=== PATIENT | female | born 1960 | race Caucasian/White ===

== ENCOUNTER 2022-10-31 15:55 | Inpatient (IN) ==
[2022-10-31] MEDS ORDERED: morphine 2 MG/ML VIAL IV ONE ×2 (16:10→17:17)
--- NOTE | 2022-10-31 16:13 | Emergency Department Note ---
Fall HPI General Chief Complaint: Extremity Injury, Lower Stated Complaint: hip Time Seen by Provider: 10/31/22 16:10 Source: patient and EMS Mode of arrival: EMS Limitations: no limitations History of Present Illness HPI Narrative: Narrative: Patient presents to the ED via EMS with complaints of left hip pain after tripping over a water bottle. Patient rates her pain 9/10. States she cannot move because of the pain will be unbearable. Patient denies head trauma, loss of consciousness, neck pain, bowel bladder incontinence, lower extremity numbness, loss of motor function lower extremity, pain medication. Patient denies any other alleviating or aggravating factors. Related Data Allergies Allergy/AdvReac Type Severity Reaction Status Date / Time No Known Drug Allergies Allergy Verified 10/31/22 15:58 Review of Systems ROS ROS Narrative: Narrative: All systems ED: reviewed and negative except as stated. PFSH Narrative Patient History Narrative: Narrative: Medical/Surgical/Family History All Active Problems (Updated 10/31/22 @ 17:27 by Shin Acuña DO) Closed fracture of left hip (Acute) Social History Smoking Status: Current every day smoker Exam Narrative Narrative: Narrative: General Limitations: no limitations General appearance: Present grimacing; Absent in distress Head Head: Present atraumatic and normocephalic Eye Eye: Present PERRL and EOMI ENT ENT: Present normal oropharynx and mucous membranes moist Neck Neck: Present normal inspection and full ROM; Absent tenderness Chest Chest: Present normal inspection Respiratory Respiratory: Present normal lung sounds bilaterally; Absent respiratory distress Cardiovascular Cardiovascular: Present regular rate and normal rhythm Adbominal Abdominal: Present soft; Absent tenderness Extremities Extremities: Present normal capillary refill Expanded Lower Extremity Hip/Pelvis: Present tenderness Neurological Neurological: Present alert and oriented X3 Psychiatric Psychiatric: Present normal affect and normal mood Skin Skin: Present warm (WNL) and intact Course Course Course Narrative: Patient was evaluated secondary to a fall with left hip pain. X-rays and CT of the pelvis was obtained with image reviewed myself which showed a left hip fracture. Patient given IV morphine for discomfort as well as IV fluids. Labs were obtained unremarkable. EKG was unremarkable. Case discussed with on-call orthopedic surgeon who plans to for surgical correction and will admit the patient. Plan of care was discussed with patient she expressed verbal understanding agreement of plan Consultations Consultation #1: Case discussed with on-call orthopedic surgeon, Dr. Castro, who will plan to admit the patient for surgical correction. Time: 17:20 Vital Signs Vital signs: Vital Signs Pulse Rate 74 10/31/22 15:56 Respiratory Rate 20 10/31/22 15:56 Blood Pressure 150/77 10/31/22 15:56 Pulse Oximetry (%) 93 10/31/22 15:56 Oxygen Delivery Method Room Air 10/31/22 15:56 Pulse Rate 67 10/31/22 17:03 Respiratory Rate 20 10/31/22 15:56 Blood Pressure 150/77 10/31/22 15:56 Pulse Oximetry (%) 93 10/31/22 15:56 Oxygen Delivery Method Room Air 10/31/22 15:56 MDM MDM Narrative Medical decision making narrative: Narrative: Differential Diagnosis Differential Diagnosis: Fall, hip fracture Medical Records Medical records reviewed: Yes I reviewed the patient's medical records. Lab Data Labs: Lab Results 10/31/22 Range/Units 17:05 POC Hct 41.0 (36-48) POC Sodium 136 (133-145) POC Potassium 5.2 H (3.3-5.1) POC Chloride 104 (96-108) POC Total CO2 26.0 (22-30) POC BUN 25 H (6-20) POC Creatinine 0.6 (0.6-1.2) POC Glucose 406 H (70-105) POC WB Ioniz Calcium 1.08 L (1.16-1.32) Radiology Data Radiology results reviewed: Yes I reviewed the patient's radiology results. Radiology results narrative: CT of the pelvis obtained with image reviewed myself, agree with radiologist interpretation Left hip x-ray obtained with image reviewed myself, I agree with radiologist interpretation EKG Data EKG #1: EKG attestation: Yes I reviewed and interpreted this EKG. EKG shows normal: sinus rhythm Rate: normal Rhythm: NSR [place]/QRS: normal ST segment elevation in: None ST segment depression in: None QTc: normal QRS morphology: Present normal Interpretation: no acute changes Core Measures AMI Core Measures Followed: Yes Discharge Plan Patient/Caregiver Discharge Instructions Pt seen by [employer]/PA only: No Clinical Impression: Closed fracture of left hip Patient Disposition: Xfer As Outpt/Obs ([facility]) Condition: Fair Follow up with: Unknown,Unknown [Primary Care Provider] -
[2022-10-31 17:10] LABS: POC Calcium, Ionized 1.08 (1.16-1.32); POC Creatinine 0.6 (0.6-1.2); POC Potassium 5.2 (3.3-5.1)
--- NOTE | 2022-10-31 17:15 | XRay Report ---
HISTORY: Preop for hip fracture repair FINDINGS: There are overlying artifacts including artifact from subcutaneous fat in the chest wall. The lungs are clear without evidence of pneumonia or congestive heart failure. The heart size is normal. IMPRESSION: Limited exam showing no acute abnormality Interpreted and Authenticated by: Jamal Garcia 10/31/22
--- NOTE | 2022-10-31 17:19 | XRay Report ---
HISTORY: Fell with left hip fracture FINDINGS: There is an acute comminuted fracture through the proximal left femur. There is a vertical component extending into the greater trochanter and an oblique component extending to the lateral subtrochanteric region and through the lesser trochanter. There is moderate varus angulation. The hip joint is normal without evidence of underlying arthritis. 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 The right hip is normal. IMPRESSION: Acute fracture of the proximal left femur with moderate angulation deformity Interpreted and Authenticated by: Jamal Garcia 10/31/22
[2022-10-31] MEDS ORDERED: ONDANSETRON 4 MG/2 ML VIAL IV PRN (17:23)
[2022-10-31] MEDS ORDERED: morphine 2 MG/ML VIAL IV PRN (17:23)
--- NOTE | 2022-10-31 17:31 | Cat Scan Report ---
History: Fell with left hip injury FINDINGS: Patient was scanned lying on the stomach. Axial images were acquired without contrast at 2.5 mm intervals. Sagittal and coronal reformats were created. The radiation exposure was limited using dose reduction technology. FINDINGS: There is an acute comminuted intertrochanteric fracture of the proximal left femur. The lesser trochanter is displaced. The fracture extends into the lateral subcutaneous trochanteric region. There is moderate angulation both ventrally and there is a varus deformity. The femoral head and hip joint are normal. The superior aspect of the fracture line extends to the boundary between the femoral neck and the medial side of the greater trochanter. No other pelvic or hip fracture present. 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 No intrapelvic hematoma is present. There is edema in the soft tissues around the fracture. Bowel pattern is normal. There is no free fluid in the pelvis. Uterus ovaries and bladder are normal. IMPRESSION: Acute fracture the proximal left femur with moderate angulation deformity Dr. Acuña was called with the report Interpreted and Authenticated by: Jamal Garcia 10/31/22
[2022-10-31 18:01] LABS: Basophils # (Auto) 0.06 K/mcL (0.00-0.30); Basophils % (Auto) 0.5 % (0.0-2.0); Eosinophils # (Auto) 0.16 K/mcL (0.00-0.70); Eosinophils % (Auto) 1.5 % (0.0-7.0); Hematocrit 40.3 % (34.1-44.9); Hemoglobin 13.4 g/dL (11.2-15.7); Lymphocytes # (Auto) 1.89 K/mcL (1.50-4.80); Lymphocytes % (Auto) 17.3 % (15.5-49.0); Mean Cell Volume 86.7 fL (80.0-100.0); Mean Corpuscular HGB Conc 33.3 g/dL (31.0-36.0); Mean Platelet Volume 10.8 fL (8.8-12.5); Monocytes % (Auto) 4.6 % (1.0-12.0); Neutrophils % (Auto) 75.6 % (38.0-78.0); Platelet Count 266 K/mcL (140-440); RBC 4.65 M/mcL (3.59-5.38); Red Cell Distribution Width 13.2 % (11.5-14.5); WBC 10.9 K/mcL (4.5-11.0)
[2022-10-31 18:15] LABS: INR 0.9 (0.9-1.1); Prothrombin Time 12.7 sec (11.9-14.5)
[2022-10-31 18:35] LABS: ALT/SGPT 13 U/L (<40); AST/SGOT 12 U/L (<32); Albumin 3.9 gm/dL (3.2-5.2); Albumin/Globulin Ratio 1.3 (1.0-2.3); Alkaline Phosphatase 109 U/L (39-117); Bilirubin,Total 0.3 mg/dL (0.1-1.0); Blood Urea Nitrogen 18 mg/dL (6-20); Carbon Dioxide 23 mmol/L (22-30); Chloride 104 mmol/L (96-108); Globulin 2.9 gm/dL (2.2-3.7); Glomerular Filtration Rate 94; Glucose 409 mg/dL (70-105)
[2022-10-31] MEDS ORDERED: INSULIN REGULAR, HUMAN 1 UNIT/0.01 ML UNIT IV ONE (18:40)
[2022-10-31] MEDS ORDERED: 0.9 % SODIUM CHLORIDE 1,000 ML IV ONE (18:40)
[2022-10-31] MEDS ORDERED: MAGNESIUM HYDROXIDE 30 ML ORAL.SUSP PO PRN (20:26)
[2022-10-31] MEDS ORDERED: DEXTROSE 31 GM ORAL.SUSP PO PRN ×2 (20:26→20:52)
[2022-10-31] MEDS ORDERED: METHOCARBAMOL 1,000 MG/10 ML VIAL IV PRN (20:26)
[2022-10-31] MEDS ORDERED: BISACODYL 10 MG SUPP.RECT PR PRN (20:26)
[2022-10-31] MEDS ORDERED: POLYETHYLENE GLYCOL 3350 17 GM PACKET PO PRN (20:26)
[2022-10-31] MEDS ORDERED: DEXTROSE 50% 50 ML VIAL IV PRN ×2 (20:26→20:52)
[2022-10-31] MEDS ORDERED: FLEETS ADULT ENEMA PR PRN (20:26)
[2022-10-31] MEDS ORDERED: hydrALAZINE 20 MG/ML VIAL IV PRN (20:52)
[2022-10-31] MEDS ORDERED: INSULIN LISPRO 1 UNIT/0.01 ML UNIT SQ SCH (21:00)
[2022-10-31] MEDS ORDERED: INSULIN GLARGINE, HUMAN 1 UNIT/0.01 ML SQ SCH (21:32)
--- NOTE | 2022-10-31 21:40 | Internal Medicine Consult Note ---
HPI Date of Consult Consult Date: 10/31/22 Primary Care Provider: Unknown Unknown Consult Narrative History of present illness: Presents the ED after tripping over a pack of water at daughters house and falling on the left hip with immediate pain. Unable to bear weight due to pain. Patient visiting from out of town. Patient seen evaluated in ED found to have left hip fracture on imaging. Dr. Castro contacted. Patient will undergo orthopedic repair tomorrow. Patient also history of diabetes and did have a blood glucose of 409 when she arrived. She also has a history of hypertension did have elevated blood pressures in the ED with systolics anywhere between 150 and 170s. Although pain a factor. No chest pain shortness of breath. No nausea vomiting. Review of Systems: Pertinent positives as above. denies headache/fever/chills/nausea/vomiting/chest or abdominal pain/cough/dyspnea/diarrhea. Remaining 10 point review of system reviewed negative PHYSICAL EXAM General: Alert, Awake, No acute Distress, obese Eyes/N/T: EOMI, no scleral icterus, PERRL, MM Head/Neck: neck supple, full ROM, normocephalic atraumatic CV: RRR, No murmurs, normal s1/s2 Pulm: Clear b/l, no wheezing/rhonchi/rales, no respiratory distress Abd: soft, nontender, +BS x4 Ext: no clubbing/cyanosis/edema, nontender Neuro: Alert, CN 2-12 grossly intact, no focal deficits, moves all extremities, , sensations intact b/l upper/lower Psychiatric: Skin: warm/dry, normal color cc:: CC: Henok Castro MD [facility] All Active Problems (Updated 10/31/22 @ 20:40 by Henok Castro MD) Diabetes mellitus (Acute) Hypertension (Acute) Diabetes 1.5, managed as type 1 (Acute) Closed fracture of left hip (Acute) Social History smoking status: Current every day smoker MEDS/ALLERGIES Home Medications and Allergies Home Medications Medication Instructions Recorded Confirmed Type atorvastatin 10 mg tablet 10 mg PO QDAY 10/31/22 10/31/22 History insulin glargine 100 unit/mL 18 unit subcut QPM 10/31/22 10/31/22 History subcutaneous cartridge liraglutide 0.6 mg/0.1 mL (18 mg/3 mg subcut 10/31/22 History mL) subcutaneous pen injector ([email or web address]) lisinopril 40 mg tablet 40 mg PO QDAY 10/31/22 10/31/22 History metformin 1,000 mg tablet 1,000 mg PO BID 10/31/22 10/31/22 History propranolol 10/31/22 History sertraline 150 mg capsule 150 mg PO QDAY 10/31/22 10/31/22 History trazodone 50 mg tablet 20 mg PO QPM 10/31/22 10/31/22 History Allergies Allergy/AdvReac Type Severity Reaction Status Date / Time No Known Drug Allergies Allergy Verified 10/31/22 15:58 EXAM Constitutional Vitals: Pulse Resp BP Pulse Ox O2 Del Method 94 H 20 160/82 93 Room Air 10/31/22 21:15 10/31/22 15:56 10/31/22 21:15 10/31/22 21:15 10/31/22 19:16 DATA Data Completed and Pending Labs: Labs from last 24 hours 10/31/22 10/31/22 10/31/22 17:30 17:30 17:30 WBC RBC Hgb Hct POC Hct MCV MCH MCHC RDW Plt Count MPV Immature Gran % (Auto) Neut % (Auto) Lymph % (Auto) Harding % (Auto) Eos % (Auto) Baso % (Auto) Lymph # (Auto) Hard[place] # (Auto) Eos # (Auto) Baso # (Auto) Immature Gran # Absolute Neutrophils PT 12.7 INR 0.9 POC Sodium Sodium 137 POC Potassium Potassium 4.6 POC Chloride Chloride 104 Carbon Dioxide 23 POC Total CO2 Anion Gap 10.0 POC BUN BUN 18 Creatinine 0.7 POC Creatinine GFR Calculation 94 Glucose 409 H POC Glucose Hemoglobin A1c Pending Estim Average Glucose Pending Calcium 9.0 POC WB Ioniz Calcium Total Bilirubin 0.3 AST 12 ALT 13 Alkaline Phosphatase 109 Total Protein 6.8 Albumin 3.9 Globulin 2.9 Albumin/Globulin Ratio 1.3 10/31/22 10/31/22 17:30 17:05 WBC 10.9 RBC 4.65 Hgb 13.4 Hct 40.3 POC Hct 41.0 MCV 86.7 MCH 28.8 MCHC 33.3 RDW 13.2 Plt Count 266 MPV 10.8 Immature Gran % (Auto) 0.5 Neut % (Auto) 75.6 Lymph % (Auto) 17.3 Harding % (Auto) 4.6 Eos % (Auto) 1.5 Baso % (Auto) 0.5 Lymph # (Auto) 1.89 Harding # (Auto) 0.50 Eos # (Auto) 0.16 Baso # (Auto) 0.06 Immature Gran # 0.06 H Absolute Neutrophils 8.26 H PT INR POC Sodium 136 Sodium POC Potassium 5.2 H Potassium POC Chloride 104 Chloride Carbon Dioxide POC Total CO2 26.0 Anion Gap POC BUN 25 H BUN Creatinine POC Creatinine 0.6 GFR Calculation Glucose POC Glucose 406 H Hemoglobin A1c Estim Average Glucose Calcium POC WB Ioniz Calcium 1.08 L Total Bilirubin AST ALT Alkaline Phosphatase Total Protein Albumin Globulin Albumin/Globulin Ratio A/P Narrative A/P Narrative: A: *Left hip fracture *DM w/Hyperglycemia: -409 on admit -A1c *HTN/HLD: *Depression: on home SSRI *Obese: bmi 35 P: -Hip per orthopedic surgeon -reduce dosed home basal insulin as will be npo in morning -SSI -cont home ACEI, and IV prn -cont home psych meds, statin -pt/ot -CM for placement needs -ppx: scd and post op per ortho Time Spent With Patient Time: Total time spent is greater than 50% in coordination of care (as documented) at patient's floor/unit and/or counseling patient:
[2022-10-31] MEDS ORDERED: ACETAMINOPHEN 650 MG/65 ML BAG IV PRN (22:00)
[2022-10-31 22:11] LABS: Hemoglobin A1C 10.3 % Hgb (4.0-6.0)
[2022-10-31] MEDS: morphine 2 MG/ML VIAL IV PRN (22:23)
[2022-10-31] MEDS: SENNOSIDES 1 TABLET PO SCH (22:24)
[2022-10-31] MEDS: DOCUSATE SODIUM 100 MG CAPSULE PO SCH (22:24)
[2022-10-31] MEDS: traZODone HCL 50 MG TABLET PO SCH (22:24)
[2022-10-31] MEDS: 0.9 % SODIUM CHLORIDE 10 ML SYRINGE IV SCH (22:30)
[2022-10-31] MEDS: INSULIN LISPRO 1 UNIT/0.01 ML UNIT SQ SCH (22:36)
[2022-10-31] MEDS: 0.9 % SODIUM CHLORIDE 1,000 ML IV SCH (22:50)
[2022-10-31] MEDS ORDERED: DEXTROSE 5%-1/2NS 1,000 ML IV SCH (23:59)
--- NOTE | 2022-11-01 | Consultation ---
DATE OF CONSULTATION: 10/31/2022 REASON FOR CONSULTATION: Left hip fracture. DATE OF CONSULTATION: 10/31/2022. CONSULTING PROVIDER: ER provider at [facility], Dr. Shin Acuña. HISTORY OF PRESENT ILLNESS: The patient is a 61-year-old female who is visiting from the [place] when she tripped over some case of water and fell onto her left side. Inability to ambulate and brought to the Emergency Department for evaluation and treatment. No other injuries on presentation. Only complains of left hip pain. No radiating pain down to the extremity. PAST MEDICAL HISTORY: Significant for diabetes, hypertension, thyroid disorder. PAST SURGICAL HISTORY: 1. She has had right ankle surgery x2 with the one being hardware removal. 2. Thyroid surgery x2 for cyst excision. 3. Tubal ligation. ALLERGIES: NO KNOWN DRUG ALLERGIES. MEDICATIONS: She takes insulin; however, not on a regular basis, beta marion, but does not know the dosing, lisinopril, sertraline. SOCIAL HISTORY: She does smoke cigarettes on a daily basis, probably half a pack per day, she resides in the [place] with her spouse, but has family here visiting. REVIEW OF SYSTEMS: Other than mentioned above, negative. PHYSICAL EXAMINATION: GENERAL: The patient is alert and oriented, appropriate, not in acute distress. VITAL SIGNS: Heart rate 80s to 90s, blood pressure 160-170 systolic, saturating 95% on room air. EXTREMITIES: Examination of the left lower extremity reveals leg is straight, a bit externally rotated and shortened; however, skin is intact. No ecchymosis or bruising noted. No crepitation about the knee itself. The foot is warm and well perfused. IMAGING: Plain radiographs demonstrating a reverse oblique intertrochanteric femur fracture. LABORATORY DATA: White count, H and H 13.4 and 40.3, platelet 266. Chemistry, she has a creatinine of 0.7, glucose is 409. ASSESSMENT AND PLAN: This is a 61-year-old female who has left peritrochanteric femur fracture. I discussed the diagnosis with her as well as treatment options. Recommendation for operative treatment is stabilized fracture and allow for improvement with decreased pain and mosque of anatomic alignment. I discussed risks of surgery as well as alternatives. With discussion understands she does want to proceed. She has a high risk for infection as she is a diabetic and does smoke. She is also obese. All these factor into the surgerical postoperative complications, which she understands. However, given her current situation, unable to modify many of these. She understands. She elected to proceed in this fashion. We will admit and we will do this in the morning. Otherwise, she is nonweightbearing, n.p.o. after midnight. consult Hospitalist for glucose >400, HTN DLW:rusty Job ID: [id number] Doc ID: [id number] Henok Castro MD [facility]
[2022-11-01 00:17] LABS: Appearance,Urine CLEAR (Clear); Bilirubin,Urine Negative (Negative); Color,Urine YELLOW; Culture Indicated,Urine No; Glucose,Urine (UA) >=500 mg/dL (Negative); Ketones,Urine 5 mg/dL (Negative); Leukocyte Esterase,Urine Negative /uL (Negative); Mucus,Urine FEW /hpf; Nitrate,Urine Negative (Negative); Protein,Urine Negative (Negative); Specific Gravity,Urine 1.029 (1.000-1.035); Urine Blood Negative (Negative); Urine RBC 1 /hpf (0-3); Urine Squamous Epithelial Cell < 1 /hpf (0-4); Urine WBC 1 /hpf (0-4); Urobilinogen,Urine Negative
[2022-11-01] MEDS: morphine 2 MG/ML VIAL IV PRN (02:32)
[2022-11-01] MEDS: INSULIN LISPRO 1 UNIT/0.01 ML UNIT SQ SCH ×8 (02:34→22:02)
[2022-11-01] MEDS: 0.9 % SODIUM CHLORIDE 10 ML SYRINGE IV SCH ×3 (04:38→20:27)
[2022-11-01] MEDS: ceFAZolin 3 GM in DEXTROSE 5% IN WATER 50 ML IV SCH ×2 (06:14→07:15)
[2022-11-01] MEDS ORDERED: SCOPOLAMINE 1 PATCH PATCH TOPICAL PRN (07:00)
[2022-11-01] MEDS ORDERED: ceFAZolin 3 GM in DEXTROSE 5% IN WATER 50 ML IV SCH (07:30)
[2022-11-01] MEDS: 0.9 % SODIUM CHLORIDE 1,000 ML IV SCH ×2 (07:30→17:29)
[2022-11-01] MEDS ORDERED: KETAMINE 50 MG/ML Syringe (ANEST) IV ONE (07:32)
[2022-11-01] MEDS ORDERED: fentaNYL 250 MCG/5 ML VIAL IV ONE (07:32)
[2022-11-01] MEDS ORDERED: PHENYLephrine 1 MG/10 ML SYRINGE (ANEST) ONE (07:32)
[2022-11-01] MEDS ORDERED: VASOPRESSIN 20 UNIT/ML VIAL ONE (07:32)
[2022-11-01] MEDS ORDERED: PROPOFOL 200 MG/20 ML VIAL IV ONE (07:32)
[2022-11-01] MEDS ORDERED: DEXAMETHASONE 10 MG/ML VIAL ONE (07:32)
[2022-11-01] MEDS ORDERED: LIDOCAINE HCL/PF 100 MG/5 ML SYRINGE IV ONE (07:32)
[2022-11-01] MEDS ORDERED: TRANEXAMIC ACID 1,000 MG/10 ML VIAL ONE (07:32)
[2022-11-01] MEDS ORDERED: SUCCINYLCHOLINE 20 MG/ML ML IV ONE (07:32)
[2022-11-01] MEDS ORDERED: MAGNESIUM SULFATE 2 GM/50 ML BAG IV ONE (07:32)
[2022-11-01] MEDS ORDERED: ONDANSETRON 4 MG/2 ML VIAL ONE (07:32)
[2022-11-01] MEDS ORDERED: MIDAZOLAM 2 MG/2 ML VIAL ONE (07:32)
[2022-11-01] MEDS ORDERED: GLYCOPYRROLATE 0.2 MG/ML VIAL IV ONE (07:32)
[2022-11-01] MEDS ORDERED: ROCURONIUM 10 MG/ML ML IV ONE (07:32)
--- NOTE | 2022-11-01 08:27 | Internal Med Progress Note ---
SUBJECTIVE Subjective Patient information: Note initiated : 11/01/22 at 8:25 am Service Date, if different from initiated Date: [] Patient: Zoraida Rodriguez 62 y/o F admitted on 10/31/22 for hip-Left Hip Fracture. Chief Complaint: [] Interval history: History of present illness: Presents the ED after tripping over a pack of water at daughters house and falling on the left hip with immediate pain. Unable to bear weight due to pain. Patient visiting from out of town. Patient seen evaluated in ED found to have left hip fracture on imaging. Dr. Castro contacted. Patient will undergo orthopedic repair tomorrow. Patient also history of diabetes and did have a blood glucose of 409 when she arrived. She also has a history of hypertension did have elevated blood pressures in the ED with systolics anywhere between 150 and 170s. Although pain a factor. No chest pain shortness of breath. No nausea vomiting. 11/01 Patient status post ORIF of the hip. Pain relatively controlled. No new complaints. PT OT. Monitor blood glucose closely. Review of Systems: Pertinent positives as above. denies headache/fever/chills/nausea/vomiting/chest or abdominal pain/cough/dyspnea/diarrhea. PHYSICAL EXAM General: Alert, Awake, No acute Distress, obese Eyes/N/T: EOMI, no scleral icterus, Head/Neck: neck supple, full ROM, CV: RRR, No murmurs, Pulm: Clear b/l, no wheezing/rhonchi/rales, no respiratory distress Abd: soft, nontender, +BS x4 Ext: no clubbing/cyanosis/edema, nontender Neuro: Alert, no focal deficits, moves all extremities, , sensations intact b/l upper/lower Psychiatric: Skin: warm/dry, normal color Constitutional Vitals: Vital Signs Temp Pulse Resp BP Pulse Ox O2 Del Method O2 Flow Rate 97.9 F 77 18 141/67 97 Room Air 0 11/01/22 07:00 11/01/22 07:00 11/01/22 07:00 11/01/22 07:00 11/01/22 07:00 11/01/22 07:00 11/01/22 07:00 Period Temp Pulse Resp BP Sys/Mcknight Pulse Ox O2 Del Method O2 Flow Rate Last 24 Hr 97.3 F-98.3 F 67-96 16-20 136-178/67-85 92-100 Room Air-Room Air 0-0 Intake and Output 10/31/22 11/01/22 11/01/22 19:59 03:59 11:59 Intake Total 480 1000 Output Total 750 Balance 480 250 Weight 106.594 kg 123.831 kg Intake & Output: Intake & Output 10/31/22 11/01/22 11/01/22 19:59 03:59 11:59 Intake Total 480 1000 Output Total 750 Balance 480 250 Weight 106.594 kg 123.831 kg Intake: IV 1000 Sodium Chloride 0.9% 1,000 ml @ 1000 Wide Open IV BOLUS ONE Rx#: [id number] Oral 480 Output: Urine Catheter Amount 750 Other: Meal Dinner Percent of Meal Consumed 100% Feeding Ability Independent Urine Appearance Clear Clear Uretheral (Diaz) Clear Clear Clear Urine Color Pale Bright Yellow Uretheral (Diaz) Yellow Yellow Bright Yellow Urine Odor Normal Normal Uretheral (Diaz) Normal Normal OBJ DATA Labs 10/31/22 17:30 10/31/22 17:30 Labs: Abnormal Lab Results 10/31/22 10/31/22 10/31/22 23:33 17:30 17:30 Immature Gran # Absolute Neutrophils POC Potassium POC BUN Glucose 409 H POC Glucose Hemoglobin A1c 10.3 H POC WB Ioniz Calcium Urine Glucose (UA) >=500 A Urine Ketones 5 A Urine Mucus Few A 10/31/22 10/31/22 17:30 17:05 Immature Gran # 0.06 H Absolute Neutrophils 8.26 H POC Potassium 5.2 H POC BUN 25 H Glucose POC Glucose 406 H Hemoglobin A1c POC WB Ioniz Calcium 1.08 L Urine Glucose (UA) Urine Ketones Urine Mucus Meds: Medications Atorvastatin Calcium (Atorvastatin 10 Mg Tablet) 10 mg PO QDAY ED Bisacodyl (Bisacodyl 10 Mg Supp.Rect) 10 mg CA Q2-3DAYS PRN PRN Reason: Constipation Dextrose (Dextrose 50% 50 Ml Vial) 0 ml IV UD PRN PRN Reason: Per Sliding Scale Dextrose (Dextrose 50% 50 Ml Vial) 0 ml IV UD PRN PRN Reason: Per Sliding Scale Diagnostic Test (Pha) (Accu-Chek 1 Each Strip) 1 each FS ACHS ED Last Admin: 11/01/22 06:40 Dose: 1 each Docusate Sodium (Docusate Sodium 100 Mg Capsule) 100 mg PO BID ED Last Admin: 10/31/22 22:24 Dose: 100 mg Glucose (Dextrose 31 Gm Oral.Susp) 15 gm PO PRN PRN PRN Reason: Hypoglycemia Hydralazine HCl (Hydralazine 20 Mg/Ml Vial) 0 mg IV Q2HP PRN PRN Reason: Hypertension Last Admin: 10/31/22 22:55 Dose: 10 mg Acetaminophen (Ofirmev) 650 mg in 65 mls @ 130 mls/hr IV Q8HP PRN; Protocol PRN Reason: PAIN LEVEL 3-6 Sodium Chloride (Sodium Chloride 0.9%) 1,000 mls @ 100 mls/hr IV .Q10H ED Last Admin: 11/01/22 07:30 Dose: Not Given Cefazolin Sodium 3 gm/ (Dextrose) 50 mls @ 100 mls/hr IV PREOP ED; Protocol Stop: 11/01/22 09:00 Last Admin: 11/01/22 07:59 Dose: Not Given Insulin Glargine (Insulin Glargine, Human 1 Unit/0.01 Ml) 18 unit SQ QPM ED Insulin Human Lispro (Insulin Lispro 1 Unit/0.01 Ml Unit) 0 unit SQ ACHS [facility]; Protocol Last Admin: 11/01/22 06:55 Dose: 6 units Lisinopril (Lisinopril 20 Mg Tablet) 40 mg PO QDAY ED Magnesium Hydroxide (Magnesium Hydroxide 30 Ml Oral.Susp) 30 ml PO BIDP PRN PRN Reason: Constipation Methocarbamol (Methocarbamol 1,000 Mg/10 Ml Vial) 500 mg IV Q6HP PRN PRN Reason: Muscle Spasm Last Admin: 10/31/22 22:22 Dose: 500 mg Morphine Sulfate (Morphine 2 Mg/Ml Vial) 2 - 4 mg IV Q4HP PRN; Protocol PRN Reason: Per Pain Protocol Last Admin: 11/01/22 02:32 Dose: 2 mg Ondansetron HCl (Ondansetron 4 Mg/2 Ml Vial) 4 mg IV Q4HP PRN PRN Reason: Nausea And Vomiting Polyethylene Glycol (Polyethylene Glycol 3350 17 Gm Packet) 17 gm PO DAILYP PRN PRN Reason: Constipation Scopolamine (Scopolamine 1 Patch Patch) 1 patch TOPICAL PREOP PRN PRN Reason: Nausea And Vomiting Senna (Sennosides 1 Tablet) 2 tab PO HS [facility] Last Admin: 10/31/22 22:24 Dose: 2 tab Sertraline HCl (Sertraline 100 Mg Tablet) 150 mg PO QDAY [facility] Sodium Biphosphate/Sodium Phosphate (Fleets Adult Enema) 1 dose CA Q3-4DAYS PRN PRN Reason: Constipation Sodium Chloride (0.9 % Sodium Chloride 10 Ml Syringe) 10 ml IV Q8 [facility] Last Admin: 11/01/22 04:38 Dose: 10 ml Trazodone HCl (Trazodone Hcl 50 Mg Tablet) 25 mg PO QPM [facility] Last Admin: 10/31/22 22:24 Dose: 25 mg A/P Narrative A/P Narrative: A: *Left hip fracture: s/p ORIF (11/01) *DM w/Hyperglycemia: sounds like she stopped taking her meds recently b/c she has been depressed from loosing a son in 2020 -409 on admit -A1c 10 *HTN/HLD: *Depression: on home SSRI *Obese: bmi 35 P: -Hip per orthopedic surgeon -start back home basal insulin with ssi -cont home ACEI, and IV prn -cont home psych meds, statin -pt/ot -IS -CM for placement needs -ppx: scd and post op per ortho Time Spent With Patient Time: Total time spent is greater than 50% in coordination of care (as documented) at patient's floor/unit and/or counseling patient: Subsequent: Total time with patient: 35 - 49 minutes QUALITY VTE Deep Vein Thrombosis/Pulmonary Embolism Present on Admission: No
[2022-11-01] MEDS ORDERED: VANCOMYCIN 1 GM VIAL TOPICAL SCH (09:15)
--- NOTE | 2022-11-01 09:35 | Brief Operative Note ---
Brief Operative Note Date of procedure: 11/01/22 Pre-op diagnosis: left peritrochanteric femur fracture Post-op diagnosis: same Procedure: operative fixation of left peritrochanteric femur fracture Grafts/Implants: Yes Anesthesia: GETA Findings: comminuted fracture Complications: none Surgeon: Henok Castro Acid Concentrator: Ryan Kwon Estimated blood loss (cc): 80 Specimens Removed/Pathology: none sent Condition: stable Disposition: PACU
[2022-11-01] MEDS ORDERED: PROMETHAZINE 25 MG/ML VIAL IV PRN (09:41)
[2022-11-01] MEDS ORDERED: METHOCARBAMOL 1,000 MG/10 ML VIAL IV PRN (09:41)
[2022-11-01] MEDS ORDERED: ONDANSETRON 4 MG/2 ML VIAL IV PRN (09:41)
[2022-11-01] MEDS ORDERED: IPRATROPIUM/ALBUTEROL 3 ML AMPUL.NEB NEB PRN (09:41)
[2022-11-01] MEDS ORDERED: MEPERIDINE 25 MG/ML VIAL IV PRN (09:41)
[2022-11-01] MEDS ORDERED: BENZOCAINE/MENTHOL 1 LOZENGE PO PRN (09:43)
[2022-11-01] MEDS ORDERED: TRANEXAMIC ACID 1,000 MG/10 ML VIAL IV ONE (09:43)
[2022-11-01] MEDS ORDERED: HYDROmorphone 0.5 MG/0.5 ML SYRINGE IV PRN (09:49)
--- NOTE | 2022-11-01 09:52 | XRay Report ---
HISTORY: FINDINGS: IMPRESSION: 0.5 minutes of fluoroscopy time was used. Interpreted and Authenticated by: Jamal Garcia 11/01/22
[2022-11-01] MEDS: fentaNYL 100 MCG/2 ML VIAL IV PRN ×2 (10:13→10:30)
[2022-11-01] MEDS: LACTATED RINGERS 1,000 ML IV SCH ×3 (11:00→23:16)
[2022-11-01] MEDS: LISINOPRIL 20 MG TABLET PO SCH (11:19)
[2022-11-01] MEDS: DOCUSATE SODIUM 100 MG CAPSULE PO SCH ×2 (11:20→20:12)
[2022-11-01] MEDS: SERTRALINE 100 MG TABLET PO SCH (11:20)
[2022-11-01] MEDS: oxyCODONE IR 5 MG TABLET PO PRN ×4 (11:21→22:13)
[2022-11-01] MEDS: ATORVASTATIN 10 MG TABLET PO SCH (11:21)
--- NOTE | 2022-11-01 12:26 | XRay Report ---
HISTORY: Postop repair fractured left femur FINDINGS: There is good alignment following open reduction internal fixation of the intertrochanteric and subtrochanteric fracture of the left femur. There is a long femoral nail extending down to the distal metaphysis. There is a pin extending into the femoral neck and two fixation screws in the distal femur. The angulation and deformity seen preoperatively has been largely corrected. IMPRESSION: Good alignment following surgical repair of the fractured proximal left femur Interpreted and Authenticated by: Jamal Garcia 11/01/22
[2022-11-01] MEDS: ACETAMINOPHEN 500 MG TABLET PO SCH ×2 (14:18→21:57)
[2022-11-01] MEDS ORDERED: ceFAZolin 2 GM in DEXTROSE 5% IN WATER 50 ML IV SCH (16:00)
[2022-11-01] MEDS ORDERED: ceFAZolin 2 GM VIAL IV SCH ×2 (16:00)
[2022-11-01] MEDS: ceFAZolin 1 GM VIAL IV SCH (17:09)
[2022-11-01] MEDS: traZODone HCL 50 MG TABLET PO SCH (20:12)
[2022-11-01] MEDS: SENNOSIDES 1 TABLET PO SCH (20:12)
[2022-11-01] MEDS: METHOCARBAMOL 500 MG TABLET PO PRN (20:12)
[2022-11-01] MEDS: INSULIN GLARGINE, HUMAN 1 UNIT/0.01 ML SQ SCH (20:27)
[2022-11-02] MEDS: INSULIN LISPRO 1 UNIT/0.01 ML UNIT SQ SCH ×8 (00:17→20:18)
[2022-11-02] MEDS: ceFAZolin 1 GM VIAL IV SCH (01:10)
[2022-11-02] MEDS: oxyCODONE IR 5 MG TABLET PO PRN ×5 (02:27→18:47)
[2022-11-02] MEDS: 0.9 % SODIUM CHLORIDE 10 ML SYRINGE IV SCH ×3 (04:52→21:56)
[2022-11-02] MEDS: ACETAMINOPHEN 500 MG TABLET PO SCH ×3 (05:29→21:57)
[2022-11-02] MEDS: METHOCARBAMOL 500 MG TABLET PO PRN ×2 (08:09→16:06)
[2022-11-02] MEDS: LISINOPRIL 20 MG TABLET PO SCH (08:09)
[2022-11-02] MEDS: ATORVASTATIN 10 MG TABLET PO SCH (08:09)
[2022-11-02] MEDS: DOCUSATE SODIUM 100 MG CAPSULE PO SCH ×2 (08:09→20:26)
[2022-11-02] MEDS: SERTRALINE 100 MG TABLET PO SCH (08:09)
--- NOTE | 2022-11-02 08:18 | Internal Med Progress Note ---
SUBJECTIVE Subjective Patient information: Note initiated : 11/02/22 at 8:17 am Service Date, if different from initiated Date: [] Patient: Zoraida Rodriguez 62 y/o F admitted on 10/31/22 for hip-Left Hip Fracture. Chief Complaint: [] Interval history: History of present illness: Presents the ED after tripping over a pack of water at daughters house and falling on the left hip with immediate pain. Unable to bear weight due to pain. Patient visiting from out of town. Patient seen evaluated in ED found to have left hip fracture on imaging. Dr. Castro contacted. Patient will undergo orthopedic repair tomorrow. Patient also history of diabetes and did have a blood glucose of 409 when she arrived. She also has a history of hypertension did have elevated blood pressures in the ED with systolics anywhere between 150 and 170s. Although pain a factor. No chest pain shortness of breath. No nausea vomiting. 11/01 Patient status post ORIF of the hip. Pain relatively controlled. No new complaints. PT OT. Monitor blood glucose closely. 11/02 Feeling better today. Pain relatively controlled. No overnight event or new complaints. Blood glucose improved being back on home regimen and blood pressure good. Review of Systems: Pertinent positives as above. denies headache/fever/chills/nausea/vomiting/chest or abdominal pain/cough/dyspn ea/diarrhea. PHYSICAL EXAM General: Alert, Awake, No acute Distress, obese Eyes/N/T: EOMI, no scleral icterus, Head/Neck: neck supple, full ROM, CV: RRR, No murmurs, Pulm: Clear b/l, no wheezing/rhonchi/rales, no respiratory distress Abd: soft, nontender, +BS x4 Ext: no clubbing/cyanosis/edema, nontender Neuro: Alert, no focal deficits, moves all extremities, , sensations intact b/l upper/lower Psychiatric: Skin: warm/dry, normal color Constitutional Vitals: Vital Signs Temp Pulse Resp BP Pulse Ox O2 Del Method O2 Flow Rate 98.3 F 85 18 144/80 96 Room Air 0 11/02/22 00:00 11/02/22 00:00 11/02/22 07:29 11/02/22 00:00 11/02/22 07:29 11/02/22 07:29 11/02/22 07:29 Period Temp Pulse Resp BP Sys/Mcknight Pulse Ox O2 Del Method O2 Flow Rate Last 24 Hr 97.0 F-98.7 F 69-96 12-24 118-167/60-98 92-99 Nasal Cannula- Room Air 0-4 Intake and Output 11/01/22 11/02/22 11/02/22 19:59 03:59 11:59 Intake Total 1800 1800 Output Total 350 1500 Balance 1450 300 Weight 124.284 kg Intake & Output: Intake & Output 11/01/22 11/02/22 11/02/22 19:59 03:59 11:59 Intake Total 1800 1800 Output Total 350 1500 Balance 1450 300 Weight 124.284 kg Intake: IV 1000 1000 Lactated Ringers 1,000 ml @ 75 1000 1000 mls/hr IV .[id number] COUNT [facility]CLUDES [facility] Rx#: [id number] Oral 800 800 Output: Urine Catheter Amount 350 1500 Other: Meal Lunch Percent of Meal Consumed 75% Feeding Ability Assist with Tray Set Up Urine Appearance Clear Clear Uretheral (Diaz) Clear Urine Color Bright Yellow Bright Yellow Uretheral (Diaz) Bright Yellow Urine Odor Normal Normal Uretheral (Diaz) Normal OBJ DATA Labs 10/31/22 17:30 10/31/22 17:30 Labs: Abnormal Lab Results 10/31/22 10/31/22 10/31/22 23:33 17:30 17:30 Immature Gran # Absolute Neutrophils POC Potassium POC BUN Glucose 409 H POC Glucose Hemoglobin A1c 10.3 H POC WB Ioniz Calcium Urine Glucose (UA) >=500 A Urine Ketones 5 A Urine Mucus Few A 10/31/22 10/31/22 17:30 17:05 Immature Gran # 0.06 H Absolute Neutrophils 8.26 H POC Potassium 5.2 H POC BUN 25 H Glucose POC Glucose 406 H Hemoglobin A1c POC WB Ioniz Calcium 1.08 L Urine Glucose (UA) Urine Ketones Urine Mucus Meds: Medications Acetaminophen (Acetaminophen 500 Mg Tablet) 1,000 mg PO Q8 [facility]ES [facility]; Protocol Last Admin: 11/02/22 05:29 Dose: 1,000 mg Atorvastatin Calcium (Atorvastatin 10 Mg Tablet) 10 mg PO QDAY COUNT [facility]CLUDES [facility] Last Admin: 11/02/22 08:09 Dose: 10 mg Bisacodyl (Bisacodyl 10 Mg Supp.Rect) 10 mg NE Q2-3DAYS PRN PRN Reason: Constipation Dextrose (Dextrose 50% 50 Ml Vial) 0 ml IV UD PRN PRN Reason: Per Sliding Scale Dextrose (Dextrose 50% 50 Ml Vial) 0 ml IV UD PRN PRN Reason: Per Sliding Scale Diagnostic Test (Pha) (Accu-Chek 1 Each Strip) 1 each FS ACHS COUNT [facility]CLUDES [facility] Last Admin: 11/02/22 07:49 Dose: 1 each Docusate Sodium (Docusate Sodium 100 Mg Capsule) 100 mg PO BID COUNT [facility]CLUDES [facility] Last Admin: 11/02/22 08:09 Dose: 100 mg Enoxaparin Sodium (Enoxaparin 40 Mg/0.4 Ml Syringe) 40 mg SQ DAILY COUNT [facility]CLUDES [facility] Glucose (Dextrose 31 Gm Oral.Susp) 15 gm PO PRN PRN PRN Reason: Hypoglycemia Hydralazine HCl (Hydralazine 20 Mg/Ml Vial) 0 mg IV Q2HP PRN PRN Reason: Hypertension Last Admin: 10/31/22 22:55 Dose: 10 mg Acetaminophen (Ofirmev) 650 mg in 65 mls @ 130 mls/hr IV Q8HP PRN; Protocol PRN Reason: PAIN LEVEL 3-6 Lactated Ringer's (Lactated Ringers) 1,000 mls @ 75 mls/hr IV .[id number] COUNT INCLUDES [facility] Last Infusion: 11/02/22 06:35 Dose: Infused Insulin Glargine (Insulin Glargine, Human 1 Unit/0.01 Ml) 18 unit SQ QPM COUNT [facility]CLUDES [facility] Last Admin: 11/01/22 20:27 Dose: 18 units Insulin Human Lispro (Insulin Lispro 1 Unit/0.01 Ml Unit) 0 unit SQ Q4 [facility]; Protocol Last Admin: 11/02/22 07:49 Dose: Not Given Lisinopril (Lisinopril 20 Mg Tablet) 40 mg PO QDAY COUNT [facility]CLUDES [facility] Last Admin: 11/02/22 08:09 Dose: 40 mg Magnesium Hydroxide (Magnesium Hydroxide 30 Ml Oral.Susp) 30 ml PO BIDP PRN PRN Reason: Constipation Methocarbamol (Methocarbamol 500 Mg Tablet) 500 mg PO TIDP PRN PRN Reason: Muscle Spasm Last Admin: 11/02/22 08:09 Dose: 500 mg Morphine Sulfate (Morphine 2 Mg/Ml Vial) 2 mg IV Q4HP PRN; Protocol PRN Reason: Per Pain Protocol Ondansetron HCl (Ondansetron 4 Mg/2 Ml Vial) 4 mg IV Q4HP PRN PRN Reason: Nausea And Vomiting Oxycodone HCl (Oxycodone Ir 5 Mg Tablet) 0 mg PO Q4HP PRN; Protocol PRN Reason: Per Pain Protocol Last Admin: 11/02/22 05:27 Dose: 10 mg Polyethylene Glycol (Polyethylene Glycol 3350 17 Gm Packet) 17 gm PO DAILYP PRN PRN Reason: Constipation Senna (Sennosides 1 Tablet) 2 tab PO HS COUNT [facility]CLUDES [facility] Last Admin: 11/01/22 20:12 Dose: 2 tab Sertraline HCl (Sertraline 100 Mg Tablet) 150 mg PO QDAY COUNT [facility]CLUDES [facility] Last Admin: 11/02/22 08:09 Dose: 150 mg Sodium Biphosphate/Sodium Phosphate (Fleets Adult Enema) 1 dose NE Q3-4DAYS PRN PRN Reason: Constipation Sodium Chloride (0.9 % Sodium Chloride 10 Ml Syringe) 10 ml IV Q8 COUNT [facility]CLUDES [facility] Last Admin: 11/02/22 04:52 Dose: 10 ml Throat Lozenges (Benzocaine/Menthol 1 Lozenge) 1 lozenge PO PRN PRN PRN Reason: Sore Throat Trazodone HCl (Trazodone Hcl 50 Mg Tablet) 25 mg PO QPM COUNT [facility]CLUDES [facility] Last Admin: 11/01/22 20:12 Dose: 25 mg A/P Narrative A/P Narrative: A: *Left hip fracture: s/p ORIF (11/01) *DM w/Hyperglycemia: sounds like she stopped taking her meds recently b/c she has been depressed from loosing a son in 2020 -409 on admit -A1c 10 *HTN/HLD: *Depression: on home SSRI *Obese: bmi 35 P: -Hip per orthopedic surgeon -conthome basal insulin with ssi -cont home ACEI, and IV prn -cont home psych meds, statin -pt/ot -IS -CM for placement needs -ppx: post op per ortho lovenox Time Spent With Patient Time: Total time spent is greater than 50% in coordination of care (as documented) at patient's floor/unit and/or counseling patient: Subsequent: Total time with patient: 35 - 49 minutes QUALITY VTE Deep Vein Thrombosis/Pulmonary Embolism Present on Admission: No
--- NOTE | 2022-11-02 09:03 | Orthopedic Progress Note ---
SUBJECTIVE Subjective Patient information: Note initiated : 11/02/22 at 9:00 am Service Date, if different from initiated Date: [] Patient: Zoraida Rodriguez 62 y/o F admitted on 10/31/22 for hip-Left Hip Fracture. Chief Complaint: [] Interval history: POD 2 s/p left hip long cephalomedullary nailing. Patient is doing well and pain is well controlled. She denies any numnbess/tingling, fever, CP, LOREDO, calf pain or any other acute symptoms. Constitutional Vitals: Vital Signs Temp Pulse Resp BP Pulse Ox O2 Del Method O2 Flow Rate 97.9 F 69 18 117/71 97 Room Air 0 11/02/22 08:00 11/02/22 08:00 11/02/22 08:00 11/02/22 08:00 11/02/22 08:00 11/02/22 08:00 11/02/22 08:00 Period Temp Pulse Resp BP Sys/Mcknight Pulse Ox O2 Del Method O2 Flow Rate Last 24 Hr 97.0 F-98.7 F 69-96 12-24 117-167/60-98 92-99 Nasal Cannula- Room Air 0-4 Intake and Output 11/01/22 11/02/22 11/02/22 19:59 03:59 11:59 Intake Total 1800 1800 Output Total 350 1500 Balance 1450 300 Weight 274 lb Intake & Output: Intake & Output 11/01/22 11/02/22 11/02/22 19:59 03:59 11:59 Intake Total 1800 1800 Output Total 350 1500 Balance 1450 300 Weight 274 lb Intake: IV 1000 1000 Lactated Ringers 1,000 ml @ 75 1000 1000 mls/hr IV .[id number] [facility] Rx#: [id number] Oral 800 800 Output: Urine Catheter Amount 350 1500 Other: Meal Lunch Percent of Meal Consumed 75% Feeding Ability Assist with Tray Set Up Urine Appearance Clear Clear Uretheral (Diaz) Clear Urine Color Bright Yellow Bright Yellow Uretheral (Diaz) Bright Yellow Urine Odor Normal Normal Uretheral (Diaz) Normal Additional findings Additional findings: exam of the left hip reveals dressings dry and in place, NVI in entire LLE, no calf tenderness OBJ DATA Labs 10/31/22 17:30 10/31/22 17:30 Labs: Abnormal Lab Results 0510/31/22 10/31/22 23:33 17:30 17:30 Immature Gran # Absolute Neutrophils POC Potassium POC BUN Glucose 409 H POC Glucose Hemoglobin A1c 10.3 H POC WB Ioniz Calcium Urine Glucose (UA) >=500 A Urine Ketones 5 A Urine Mucus Few A 10/31/22 10/31/22 17:30 17:05 Immature Gran # 0.06 H Absolute Neutrophils 8.26 H POC Potassium 5.2 H POC BUN 25 H Glucose POC Glucose 406 H Hemoglobin A1c POC WB Ioniz Calcium 1.08 L Urine Glucose (UA) Urine Ketones Urine Mucus Meds: Medications Acetaminophen (Acetaminophen 500 Mg Tablet) 1,000 mg PO Q8 [facility]; Protocol Last Admin: 11/02/22 05:29 Dose: 1,000 mg Atorvastatin Calcium (Atorvastatin 10 Mg Tablet) 10 mg PO QDAY [facility] Last Admin: 11/02/22 08:09 Dose: 10 mg Bisacodyl (Bisacodyl 10 Mg Supp.Rect) 10 mg ME Q2-3DAYS PRN PRN Reason: Constipation Dextrose (Dextrose 50% 50 Ml Vial) 0 ml IV UD PRN PRN Reason: Per Sliding Scale Dextrose (Dextrose 50% 50 Ml Vial) 0 ml IV UD PRN PRN Reason: Per Sliding Scale Diagnostic Test (Pha) (Accu-Chek 1 Each Strip) 1 each FS ACHS [facility] Last Admin: 11/02/22 07:49 Dose: 1 each Docusate Sodium (Docusate Sodium 100 Mg Capsule) 100 mg PO BID [facility] Last Admin: 11/02/22 08:09 Dose: 100 mg Enoxaparin Sodium (Enoxaparin 40 Mg/0.4 Ml Syringe) 40 mg SQ DAILY [facility] Glucose (Dextrose 31 Gm Oral.Susp) 15 gm PO PRN PRN PRN Reason: Hypoglycemia Hydralazine HCl (Hydralazine 20 Mg/Ml Vial) 0 mg IV Q2HP PRN PRN Reason: Hypertension Last Admin: 10/31/22 22:55 Dose: 10 mg Acetaminophen (Ofirmev) 650 mg in 65 mls @ 130 mls/hr IV Q8HP PRN; Protocol PRN Reason: PAIN LEVEL 3-6 Insulin Glargine (Insulin Glargine, Human 1 Unit/0.01 Ml) 18 unit SQ QPM [facility] Last Admin: 11/01/22 20:27 Dose: 18 units Insulin Human Lispro (Insulin Lispro 1 Unit/0.01 Ml Unit) 0 unit SQ Q4 [facility]; Protocol Last Admin: 11/02/22 07:49 Dose: Not Given Lisinopril (Lisinopril 20 Mg Tablet) 40 mg PO QDAY [facility] Last Admin: 11/02/22 08:09 Dose: 40 mg Magnesium Hydroxide (Magnesium Hydroxide 30 Ml Oral.Susp) 30 ml PO BIDP PRN PRN Reason: Constipation Methocarbamol (Methocarbamol 500 Mg Tablet) 500 mg PO TIDP PRN PRN Reason: Muscle Spasm Last Admin: 11/02/22 08:09 Dose: 500 mg Morphine Sulfate (Morphine 2 Mg/Ml Vial) 2 mg IV Q4HP PRN; Protocol PRN Reason: Per Pain Protocol Ondansetron HCl (Ondansetron 4 Mg/2 Ml Vial) 4 mg IV Q4HP PRN PRN Reason: Nausea And Vomiting Oxycodone HCl (Oxycodone Ir 5 Mg Tablet) 0 mg PO Q4HP PRN; Protocol PRN Reason: Per Pain Protocol Last Admin: 11/02/22 05:27 Dose: 10 mg Polyethylene Glycol (Polyethylene Glycol 3350 17 Gm Packet) 17 gm PO DAILYP PRN PRN Reason: Constipation Senna (Sennosides 1 Tablet) 2 tab PO HS [facility] Last Admin: 11/01/22 20:12 Dose: 2 tab Sertraline HCl (Sertraline 100 Mg Tablet) 150 mg PO QDAY [facility] Last Admin: 11/02/22 08:09 Dose: 150 mg Sodium Biphosphate/Sodium Phosphate (Fleets Adult Enema) 1 dose ME Q3-4DAYS PRN PRN Reason: Constipation Sodium Chloride (0.9 % Sodium Chloride 10 Ml Syringe) 10 ml IV Q8 [facility] Last Admin: 11/02/22 04:52 Dose: 10 ml Throat Lozenges (Benzocaine/Menthol 1 Lozenge) 1 lozenge PO PRN PRN PRN Reason: Sore Throat Trazodone HCl (Trazodone Hcl 50 Mg Tablet) 25 mg PO QPM [facility] Last Admin: 11/01/22 20:12 Dose: 25 mg A/P Assessment and plan (1) Closed fracture of left hip: Assessment and plan: POD 2 s/p left hip ORIF 1. Plan for discharge to home tomorrow 2. Continue current pain algorithm 3. Leave dressings in place 4. PT for assistance with transfer to seat, no/toe touch weightbearing on LLE. Status: Acute Qualifiers: Encounter type: initial encounter Qualified Code(s): S72.002A - Fracture of unspecified part of neck of left femur, initial encounter for closed fracture Time Spent With Patient Time: Total time spent is greater than 50% in coordination of care (as documented) at patient's floor/unit and/or counseling patient:
[2022-11-02] MEDS: NICOTINE 14 MG PATCH TOPICAL SCH (11:12)
[2022-11-02] MEDS: INSULIN GLARGINE, HUMAN 1 UNIT/0.01 ML SQ SCH (20:26)
[2022-11-02] MEDS: SENNOSIDES 1 TABLET PO SCH (20:26)
[2022-11-02] MEDS: traZODone HCL 50 MG TABLET PO SCH (20:26)
[2022-11-02] MEDS: ENOXAPARIN 40 MG/0.4 ML SYRINGE SQ SCH (21:56)
[2022-11-03] MEDS: oxyCODONE IR 5 MG TABLET PO PRN ×5 (00:03→22:05)
[2022-11-03] MEDS: INSULIN LISPRO 1 UNIT/0.01 ML UNIT SQ SCH ×7 (00:07→21:43)
[2022-11-03] MEDS: METHOCARBAMOL 500 MG TABLET PO PRN ×2 (03:39→22:05)
[2022-11-03] MEDS: ACETAMINOPHEN 500 MG TABLET PO SCH ×3 (05:52→17:48)
[2022-11-03] MEDS: 0.9 % SODIUM CHLORIDE 10 ML SYRINGE IV SCH ×3 (05:53→21:14)
--- NOTE | 2022-11-03 06:10 | Orthopedic Progress Note ---
SUBJECTIVE Subjective Patient information: Note initiated : 11/03/22 at 6:06 am Service Date, if different from initiated Date: [] Patient: Zoraida Rodriguez 62 y/o F admitted on 10/31/22 for hip-Left Hip Fracture. Chief Complaint: [Overall doing ok but is painful. Has mobilized with walker. tolerating diet/voiding] Constitutional Vitals: Vital Signs Temp Pulse Resp BP Pulse Ox O2 Del Method O2 Flow Rate 97.5 F 77 16 121/53 94 Room Air 0 11/03/22 04:00 11/03/22 04:00 11/03/22 04:00 11/03/22 04:00 11/03/22 04:00 11/03/22 04:00 11/02/22 16:00 Period Temp Pulse Resp BP Sys/Mcknight Pulse Ox O2 Del Method O2 Flow Rate Last 24 Hr 97.5 F-98.6 F 66-88 16-18 108-148/53-78 94-98 Room Air-Room Air 0-0 Intake and Output 11/02/22 11/03/22 11/03/22 19:59 03:59 11:59 Intake Total 840 240 Output Total 500 800 Balance 340 -560 Weight 275 lb 8 oz Intake & Output: Intake & Output 11/02/22 11/03/22 11/03/22 19:59 03:59 11:59 Intake Total 840 240 Output Total 500 800 Balance 340 -560 Weight 275 lb 8 oz Intake: Oral 840 240 Output: Void Amount 500 800 Other: Meal Lunch Percent of Meal Consumed 50% Feeding Ability Assist with Tray Set Up Urine Appearance Clear Clear Urine Color Bright Yellow Yellow Urine Odor Normal Normal # Voids 1 Additional findings Additional findings: alert and appropriate right hip: dressing clean dry and intact. foot warm well perfused. OBJ DATA Labs 10/31/22 17:30 10/31/22 17:30 Labs: Abnormal Lab Results 10/31/22 10/31/22 10/31/22 23:33 17:30 17:30 Immature Gran # Absolute Neutrophils POC Potassium POC BUN Glucose 409 H POC Glucose Hemoglobin A1c 10.3 H POC WB Ioniz Calcium Urine Glucose (UA) >=500 A Urine Ketones 5 A Urine Mucus Few A 10/31/22 10/31/22 17:30 17:05 Immature Gran # 0.06 H Absolute Neutrophils 8.26 H POC Potassium 5.2 H POC BUN 25 H Glucose POC Glucose 406 H Hemoglobin A1c POC WB Ioniz Calcium 1.08 L Urine Glucose (UA) Urine Ketones Urine Mucus Meds: Medications Acetaminophen (Acetaminophen 500 Mg Tablet) 1,000 mg PO Q8 [facility]; Protocol Last Admin: 11/03/22 05:52 Dose: 1,000 mg Atorvastatin Calcium (Atorvastatin 10 Mg Tablet) 10 mg PO QDAY [facility] Last Admin: 11/02/22 08:09 Dose: 10 mg Bisacodyl (Bisacodyl 10 Mg Supp.Rect) 10 mg [place] Q2-3DAYS PRN PRN Reason: Constipation Dextrose (Dextrose 50% 50 Ml Vial) 0 ml IV UD PRN PRN Reason: Per Sliding Scale Dextrose (Dextrose 50% 50 Ml Vial) 0 ml IV UD PRN PRN Reason: Per Sliding Scale Diagnostic Test (Pha) (Accu-Chek 1 Each Strip) 1 each FS ACHS [facility] Last Admin: 11/03/22 03:40 Dose: 1 each Docusate Sodium (Docusate Sodium 100 Mg Capsule) 100 mg PO BID [facility] Last Admin: 11/02/22 20:26 Dose: 100 mg Enoxaparin Sodium (Enoxaparin 40 Mg/0.4 Ml Syringe) 40 mg SQ DAILY [facility] Last Admin: 11/02/22 21:56 Dose: 40 mg Glucose (Dextrose 31 Gm Oral.Susp) 15 gm PO PRN PRN PRN Reason: Hypoglycemia Hydralazine HCl (Hydralazine 20 Mg/Ml Vial) 0 mg IV Q2HP PRN PRN Reason: Hypertension Last Admin: 10/31/22 22:55 Dose: 10 mg Acetaminophen (Ofirmev) 650 mg in 65 mls @ 130 mls/hr IV Q8HP PRN; Protocol PRN Reason: PAIN LEVEL 3-6 Insulin Glargine (Insulin Glargine, Human 1 Unit/0.01 Ml) 18 unit SQ QPM [facility] Last Admin: 11/02/22 20:26 Dose: 18 units Insulin Human Lispro (Insulin Lispro 1 Unit/0.01 Ml Unit) 0 unit SQ Q4 [facility]; Protocol Last Admin: 11/03/22 03:45 Dose: Not Given Lisinopril (Lisinopril 20 Mg Tablet) 40 mg PO QDAY [facility] Last Admin: 11/02/22 08:09 Dose: 40 mg Magnesium Hydroxide (Magnesium Hydroxide 30 Ml Oral.Susp) 30 ml PO BIDP PRN PRN Reason: Constipation Methocarbamol (Methocarbamol 500 Mg Tablet) 500 mg PO TIDP PRN PRN Reason: Muscle Spasm Last Admin: 11/03/22 03:39 Dose: 500 mg Morphine Sulfate (Morphine 2 Mg/Ml Vial) 2 mg IV Q4HP PRN; Protocol PRN Reason: Per Pain Protocol Nicotine (Nicotine 14 Mg Patch) 14 mg TOPICAL DAILY@1000 [facility] Last Admin: 11/02/22 11:12 Dose: 14 mg Ondansetron HCl (Ondansetron 4 Mg/2 Ml Vial) 4 mg IV Q4HP PRN PRN Reason: Nausea And Vomiting Oxycodone HCl (Oxycodone Ir 5 Mg Tablet) 0 mg PO Q4HP PRN; Protocol PRN Reason: Per Pain Protocol Last Admin: 11/03/22 05:52 Dose: 10 mg Polyethylene Glycol (Polyethylene Glycol 3350 17 Gm Packet) 17 gm PO DAILYP PRN PRN Reason: Constipation Senna (Sennosides 1 Tablet) 2 tab PO HS [facility] Last Admin: 11/02/22 20:26 Dose: 2 tab Sertraline HCl (Sertraline 100 Mg Tablet) 150 mg PO QDAY [facility] Last Admin: 11/02/22 08:09 Dose: 150 mg Sodium Biphosphate/Sodium Phosphate (Fleets Adult Enema) 1 dose [place] Q3-4DAYS PRN PRN Reason: Constipation Sodium Chloride (0.9 % Sodium Chloride 10 Ml Syringe) 10 ml IV Q8 [facility] Last Admin: 11/03/22 05:53 Dose: 10 ml Throat Lozenges (Benzocaine/Menthol 1 Lozenge) 1 lozenge PO PRN PRN PRN Reason: Sore Throat Trazodone HCl (Trazodone Hcl 50 Mg Tablet) 25 mg PO QPM [facility] Last Admin: 11/02/22 20:26 Dose: 25 mg A/P Assessment and plan (1) Closed fracture of left hip: Assessment and plan: POD 3 s/p left hip ORIF right peritrochanteric hip fracture - toe touch weight bearing ----PT - oral pain meds/diet - prophy: IS, scd's, mobilization, lovenox - Dispo: pending, may need SNF as she is getting around a bit more slowly than expected. Will see how she does with PT. Could consider home health as well. Status: Acute Qualifiers: Encounter type: initial encounter Qualified Code(s): S72.002A - Fracture of unspecified part of neck of left femur, initial encounter for closed fracture Time Spent With Patient Time: Total time spent is greater than 50% in coordination of care (as documented) at patient's floor/unit and/or counseling patient:
[2022-11-03] MEDS: morphine 2 MG/ML VIAL IV PRN ×2 (07:40→12:41)
--- NOTE | 2022-11-03 07:53 | Internal Med Progress Note ---
SUBJECTIVE Subjective Patient information: Note initiated : 11/03/22 at 7:53 am Service Date, if different from initiated Date: [] Patient: Zoraida Rodriguez 62 y/o F admitted on 10/31/22 for hip-Left Hip Fracture. Chief Complaint: [] Interval history: History of present illness: Presents the ED after tripping over a pack of water at daughters house and falling on the left hip with immediate pain. Unable to bear weight due to pain. Patient visiting from out of town. Patient seen evaluated in ED found to have left hip fracture on imaging. Dr. Castro contacted. Patient will undergo orthopedic repair tomorrow. Patient also history of diabetes and did have a blood glucose of 409 when she arrived. She also has a history of hypertension did have elevated blood pressures in the ED with systolics anywhere between 150 and 170s. Although pain a factor. No chest pain shortness of breath. No nausea vomiting. 11/01 Patient status post ORIF of the hip. Pain relatively controlled. No new complaints. PT OT. Monitor blood glucose closely. 11/02 Feeling better today. Pain relatively controlled. No overnight event or new complaints. Blood glucose improved being back on home regimen and blood pressure good. 11/03 No overnight event or new complaints. Pain relatively controlled. Blood pressure and glucose controlled. Review of Systems: Pertinent positives as above. denies headache/fever/chills/nausea/vomiting/chest or abdominal amarilys n/cough/dyspnea/diarrhea. PHYSICAL EXAM General: Alert, Awake, No acute Distress, obese Eyes/N/T: EOMI, no scleral icterus, Head/Neck: neck supple, full ROM, CV: RRR, No murmurs, Pulm: Clear b/l, no wheezing/rhonchi/rales, no respiratory distress Abd: soft, nontender, +BS x4 Ext: no clubbing/cyanosis/edema, nontender Neuro: Alert, no focal deficits, moves all extremities, , sensations intact b/l upper/lower Psychiatric: Skin: warm/dry, normal color Constitutional Vitals: Vital Signs Temp Pulse Resp BP Pulse Ox O2 Del Method O2 Flow Rate 98.6 F 89 16 114/54 92 Room Air 0 11/03/22 07:22 11/03/22 07:22 11/03/22 07:22 11/03/22 07:22 11/03/22 07:22 11/03/22 07:22 11/02/22 16:00 Period Temp Pulse Resp BP Sys/Mcknight Pulse Ox O2 Del Method O2 Flow Rate Last 24 Hr 97.5 F-98.6 F 66-89 16-18 108-148/53-78 92-98 Room Air-Room Air 0-0 Intake and Output 11/02/22 11/03/22 11/03/22 19:59 03:59 11:59 Intake Total 840 240 Output Total 500 800 Balance 340 -560 Weight 124.965 kg Intake & Output: Intake & Output 11/02/22 11/03/22 11/03/22 19:59 03:59 11:59 Intake Total 840 240 Output Total 500 800 Balance 340 -560 Weight 124.965 kg Intake: Oral 840 240 Output: Void Amount 500 800 Other: Meal Lunch Percent of Meal Consumed 50% Feeding Ability Assist with Tray Set Up Urine Appearance Clear Clear Urine Color Bright Yellow Yellow Urine Odor Normal Normal # Voids 1 OBJ DATA Labs 10/31/22 17:30 10/31/22 17:30 Labs: Abnormal Lab Results 10/31/22 10/31/22 10/31/22 23:33 17:30 17:30 Immature Gran # Absolute Neutrophils POC Potassium POC BUN Glucose 409 H POC Glucose Hemoglobin A1c 10.3 H POC WB Ioniz Calcium Urine Glucose (UA) >=500 A Urine Ketones 5 A Urine Mucus Few A 10/31/22 10/31/22 17:30 17:05 Immature Gran # 0.06 H Absolute Neutrophils 8.26 H POC Potassium 5.2 H POC BUN 25 H Glucose POC Glucose 406 H Hemoglobin A1c POC WB Ioniz Calcium 1.08 L Urine Glucose (UA) Urine Ketones Urine Mucus Meds: Medications Acetaminophen (Acetaminophen 500 Mg Tablet) 1,000 mg PO Q8 ED; Protocol Last Admin: 11/03/22 05:52 Dose: 1,000 mg Atorvastatin Calcium (Atorvastatin 10 Mg Tablet) 10 mg PO QDAY ED Last Admin: 11/02/22 08:09 Dose: 10 mg Bisacodyl (Bisacodyl 10 Mg Supp.Rect) 10 mg VT Q2-3DAYS PRN PRN Reason: Constipation Dextrose (Dextrose 50% 50 Ml Vial) 0 ml IV UD PRN PRN Reason: Per Sliding Scale Dextrose (Dextrose 50% 50 Ml Vial) 0 ml IV UD PRN PRN Reason: Per Sliding Scale Diagnostic Test (Pha) (Accu-Chek 1 Each Strip) 1 each FS ACHS [facility] Last Admin: 11/03/22 07:44 Dose: 1 each Docusate Sodium (Docusate Sodium 100 Mg Capsule) 100 mg PO BID [facility] Last Admin: 11/02/22 20:26 Dose: 100 mg Enoxaparin Sodium (Enoxaparin 40 Mg/0.4 Ml Syringe) 40 mg SQ DAILY [facility] Last Admin: 11/02/22 21:56 Dose: 40 mg Glucose (Dextrose 31 Gm Oral.Susp) 15 gm PO PRN PRN PRN Reason: Hypoglycemia Hydralazine HCl (Hydralazine 20 Mg/Ml Vial) 0 mg IV Q2HP PRN PRN Reason: Hypertension Last Admin: 10/31/22 22:55 Dose: 10 mg Acetaminophen (Ofirmev) 650 mg in 65 mls @ 130 mls/hr IV Q8HP PRN; Protocol PRN Reason: PAIN LEVEL 3-6 Insulin Glargine (Insulin Glargine, Human 1 Unit/0.01 Ml) 18 unit SQ QPM [facility] Last Admin: 11/02/22 20:26 Dose: 18 units Insulin Human Lispro (Insulin Lispro 1 Unit/0.01 Ml Unit) 0 unit SQ Q4 [facility]; Protocol Last Admin: 11/03/22 07:35 Dose: 4 units Lisinopril (Lisinopril 20 Mg Tablet) 40 mg PO QDAY [facility] Last Admin: 11/02/22 08:09 Dose: 40 mg Magnesium Hydroxide (Magnesium Hydroxide 30 Ml Oral.Susp) 30 ml PO BIDP PRN PRN Reason: Constipation Methocarbamol (Methocarbamol 500 Mg Tablet) 500 mg PO TIDP PRN PRN Reason: Muscle Spasm Last Admin: 11/03/22 03:39 Dose: 500 mg Morphine Sulfate (Morphine 2 Mg/Ml Vial) 2 mg IV Q4HP PRN; Protocol PRN Reason: Per Pain Protocol Last Admin: 11/03/22 07:40 Dose: 2 mg Nicotine (Nicotine 14 Mg Patch) 14 mg TOPICAL DAILY@1000 ED Last Admin: 11/02/22 11:12 Dose: 14 mg Ondansetron HCl (Ondansetron 4 Mg/2 Ml Vial) 4 mg IV Q4HP PRN PRN Reason: Nausea And Vomiting Oxycodone HCl (Oxycodone Ir 5 Mg Tablet) 0 mg PO Q4HP PRN; Protocol PRN Reason: Per Pain Protocol Last Admin: 11/03/22 05:52 Dose: 10 mg Polyethylene Glycol (Polyethylene Glycol 3350 17 Gm Packet) 17 gm PO DAILYP PRN PRN Reason: Constipation Senna (Sennosides 1 Tablet) 2 tab PO HS [facility] Last Admin: 11/02/22 20:26 Dose: 2 tab Sertraline HCl (Sertraline 100 Mg Tablet) 150 mg PO QDAY [facility] Last Admin: 11/02/22 08:09 Dose: 150 mg Sodium Biphosphate/Sodium Phosphate (Fleets Adult Enema) 1 dose VT Q3-4DAYS PRN PRN Reason: Constipation Sodium Chloride (0.9 % Sodium Chloride 10 Ml Syringe) 10 ml IV Q8 [facility] Last Admin: 11/03/22 05:53 Dose: 10 ml Throat Lozenges (Benzocaine/Menthol 1 Lozenge) 1 lozenge PO PRN PRN PRN Reason: Sore Throat Trazodone HCl (Trazodone Hcl 50 Mg Tablet) 25 mg PO QPM [facility] Last Admin: 11/02/22 20:26 Dose: 25 mg A/P Narrative A/P Narrative: A: *Left hip fracture: s/p ORIF (11/01) *DM w/Hyperglycemia: sounds like she stopped taking her meds recently b/c she has been depressed from loosing a son in 2020 -409 on admit -A1c 10 *HTN/HLD: *Depression: on home SSRI *Obese: bmi 35 P: -Hip per orthopedic surgeon -conthome basal insulin with ssi -cont home ACEI, and IV prn -cont home psych meds, statin -pt/ot -IS -CM for placement needs -ppx: post op per ortho lovenox Time Spent With Patient Time: Total time spent is greater than 50% in coordination of care (as documented) at patient's floor/unit and/or counseling patient: Subsequent: Total time with patient: 35 - 49 minutes QUALITY VTE Deep Vein Thrombosis/Pulmonary Embolism Present on Admission: No
[2022-11-03] MEDS: ATORVASTATIN 10 MG TABLET PO SCH (08:12)
[2022-11-03] MEDS: LISINOPRIL 20 MG TABLET PO SCH (08:12)
[2022-11-03] MEDS: SERTRALINE 100 MG TABLET PO SCH (08:12)
[2022-11-03] MEDS: NICOTINE 14 MG PATCH TOPICAL SCH (08:12)
[2022-11-03] MEDS: ENOXAPARIN 40 MG/0.4 ML SYRINGE SQ SCH (08:12)
[2022-11-03] MEDS: DOCUSATE SODIUM 100 MG CAPSULE PO SCH ×2 (08:13→21:13)
--- NOTE | 2022-11-03 08:34 | Operative Note ---
DATE OF OPERATION: 11/01/2022 DATE OF PROCEDURE: 11/01/2021 PREOPERATIVE DIAGNOSIS: Left peritrochanteric femur fracture. POSTOPERATIVE DIAGNOSIS: Left peritrochanteric femur fracture. PROCEDURE PERFORMED: Open reduction and internal fixation of left peritrochanteric femur fracture with cephalomedullary nail. SURGEON: Henok Castro M.D. CONSTRUCTION RIGGER: Ryan Kwon PA-C. This providers expertise and technical skill were required throughout the case. The PA assisted with preoperative coordination, intraoperative retraction, wound closure, and dressing and splint application, as well as postoperative documentation and care coordination. ANESTHESIA: General. INTRAVENOUS FLUIDS: 1 liter lactated Ringer's. ESTIMATED BLOOD LOSS: 100 mL. TOURNIQUET TIME: Not applicable. ANTIBIOTICS: 3 grams Ancef. IMPLANTS: Keren long gamma nail, 10 x 420. 90 mm lag screw, two distal interlock. INTRAOPERATIVE COMPLICATIONS: None apparent. PATHOLOGY/LAB: None. INDICATIONS FOR PROCEDURE: The patient is a 62-year-old female who sustained a fall onto her left hip, resulting in peritrochanteric femur fracture. I discussed and reviewed this with her and discussed operative treatment given the unstable nature of the fracture. I discussed what this would entail as well as expectations postoperatively. She understands. She does have a baseline increased risk of infection given her diabetes, smoking, and obesity. She wished to proceed. DESCRIPTION OF PROCEDURE: Patient was met in the preoperative holding area where site was verified and marked with the patient's input. She was brought to the operating room where she underwent successful general anesthesia. She was placed on the [place] table with both feet in well-padded boots. Padded perineal post was placed. The leg was inline traction as well as a bit of internal rotation. The contralateral leg was in down position. Radiographs were taken, which overall demonstrated good alignment on the AP; on the coronal was a bit of apex anterior deformity. I did want to correct this as I typically do it in an open fashion with a small plate. However, given she already has increased risk for infection at baseline, I elected to proceed with minimal dissection. The right hip was wiped down with chlorhexidine wipes and then prepped and draped in the usual sterile fashion with ChloraPrep. Surgical timeout was performed to verify the patient's identity, correct procedure being performed, and correct extremity being operated on. Everybody was in agreement. We brought in fluoroscopy, isolated the apex of the deformity on the lateral and made a small stab incision and dissected down to the basicervical region and placed the ball-tip point here. We could reduce that along with a bit of internal rotation and appeared to reduce that fracture fragment. Given that, I elected to proceed in this fashion. We came back to an AP radiograph and 2 fingerbreadths proximal to the tip of the greater trochanter we made a stab incision and then placed a guidewire on the tip of the greater trochanter on the AP and the middle anterior one-third junction on the lateral. The guide pin was then placed, but given the comminuted fracture it did get stuck on the medial calcar region. Thus, utilizing the curved finger awl I gained access into the canal itself. A ball-tipped guidewire was passed over top of this, verified to be in the intramedullary on AP and lateral. This was then placed on the distal femur, which measured 440, but we were a bit over distracted. With a ball-tipped pusher over the anterior basicervical neck region and aother one over the lateral cortex of the femur to reduce the additional fragment, I did ream with a 12 mm reamer, which did have chatter at the isthmus. Thus, I elected to proceed with a 10 mm nail rather than 13 mm. At that point, the nail was placed, which did displace the fracture a bit laterallyl. However, this was a split fracture of the greater trochanter and then had basicervical component in the shaft component. I felt that we could reduce this once we put a lag screw in place. Given that, the nail was properly positioned in order for the screw to be in the central neck and into the central head as well. We placed our sleeve through the lateral guide into the femur for the lag screw. The skin was sharply incised and placed on the lateral cortex. A guidewire was then placed under AP and lateral, which showed overall good position. This was measured, then drilled and the screw was placed. I did place an anti-rotational guidewire prior to placing the screw in order to avoid rotation of the basicervical component. Once the screw was in place, I did compress it. I did remove the guidewire prior to compression, which did work well and I put the set screw in and locked it in place. I released all traction as I did over distract the fracture in order for it to reduce in a better alignment. The traction was removed and the fracture was impacted and did close down the gap itself. Overall, I felt this was adequate and did improve AP and lateral views. The distal two interlocks were then placed via perfect yurok technique. The wound was copiously irrigated. The deep fascia laterally was closed with 0 Vicryl, subcutaneous tissue with 2-0 Vicryl, and skin with josé antonio. The poke holes were closed with josé antonio. Distally, josé antonio were for the appropriate interlock screws. The leg was then cleaned and dried. We placed Xeroform along with 4x4s and Medipore tape to secure the dressing. The patient awoke from anesthesia and transferred to PACU in stable condition. POSTOPERATIVE PLAN: The patient will be observed in the hospital to ensure pain control and mobilization with therapy. She will be toe-touch weightbearing for the first 4-6 weeks. DLW:[email or web address] Job ID: [id number] Doc ID: [id number] Henok Castro MD MTDKaitlyn
--- NOTE | 2022-11-03 12:29 | EKG ---
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
[2022-11-03] MEDS ORDERED: DEXTROSE 50% 50 ML VIAL IV PRN ×2 (15:50→15:58)
[2022-11-03] MEDS ORDERED: DEXTROSE 31 GM ORAL.SUSP PO PRN (15:58)
[2022-11-03] MEDS ORDERED: INSULIN LISPRO 1 UNIT/0.01 ML UNIT SQ SCH (17:00)
[2022-11-03] MEDS ORDERED: CALCIUM CARBONATE 500 MG TAB.CHEW CHEWED PRN (17:45)
[2022-11-03] MEDS: SENNOSIDES 1 TABLET PO SCH (21:13)
[2022-11-03] MEDS: traZODone HCL 50 MG TABLET PO SCH (21:13)
[2022-11-03] MEDS: INSULIN GLARGINE, HUMAN 1 UNIT/0.01 ML SQ SCH (21:43)
[2022-11-04] MEDS: ACETAMINOPHEN 500 MG TABLET PO SCH ×2 (00:29→05:16)
[2022-11-04] MEDS: oxyCODONE IR 5 MG TABLET PO PRN ×2 (03:34→11:34)
[2022-11-04] MEDS: morphine 2 MG/ML VIAL IV PRN (03:34)
[2022-11-04] MEDS: 0.9 % SODIUM CHLORIDE 10 ML SYRINGE IV SCH (04:12)
--- NOTE | 2022-11-04 05:48 | Discharge Summary ---
Discharge Provider Provider IMPORTANT FOLLOW-UP INFORMATION FOR PCP: Patient information: Note initiated : 11/04/22 at 5:41 am Service Date, if different from initiated Date: [] Patient: Zoraida Rodriguez 62 y/o F admitted on 10/31/22 for hip-Left Hip Fracture. Chief Complaint: [] Date of admission: 10/31/22 21:26 Discharge date: 11/04/22 Primary care physician: Unknown Unknown Admitting clinician: Henok Castro Attending physician on admission: Henok Castro Consults: 10/31/22 Consult to Physician [CONS] Stat Comment: Consulting Provider: Henok Castro Reason For Exam: Physician to Consult Consult to Physician [CONS] Stat Comment: Renato Tang DO Consulting Provider: Renato Tang Reason For Exam: Physician to Consult Attending physician on discharge: Henok Castro Discharging clinician: Henok Castro COURSE Hospital Course Hospital course: Patient admitted on [id number] with left proximal femur fracture. Underwent operative fixation on . On admit had a glucose over 400 and Hospitalists was consulted for diabetes and hypertension. Post operatively patient was restricted to toe touch weight bearing. This made it more difficult for mobilization. Her pain was controlled on oral meds. Placed on lovenox for DVT prophylaxis. Hemodynamically stable and voiding spontaneously. She remained in the hospital several days until disposition was determined/preauthorized as she was unable to return home with the restrictions. Discharge diagnosis: Left proximal peritrochanteric hip fracture Secondary discharge diagnosis: Diabetes, Hypertension, Obesity Reason for admission: left peritrochanteric femur fracture Procedures: operative fixation of left peritrochanteric femur fracture Time spent discussing smoking cessation with patient: 3 to 10 minutes Time Spent with Patient Time attestation: Total time spent providing and/or coordinating discharge services: Time spent: Greater than 30 minutes Physical Examination Exam Incision healing: Yes Incision draining: No Incision red: No Incision swollen: Yes Incision inflamed: No Clean and dry: Yes Weight bearing status: none DC Instructions-General Patient Instructions Dressing Care: Other Additional Dressing Instructions: May shower with dressing removed as long as no drainage from incisions. Discharge Plan Patient/Caregiver Discharge Instructions Activity: ambulate only with your walker and increase activity as tolerated Diet: Consistent Carbohydrate Activity Restrictions/Additional Instructions: -Toe touch weight bearing - use a walker or crutches -OK to remove dressing and change daily. If they are dry without drainage, ok to get these areas wet while showering. If they are draining, do not get them wet. -Work on tightening and relaxing your thigh muscles. Tighten your thigh muscles and lift your leg. Work on moving your ankle up and down. Work on bending your knee to 90 degrees. Tighten and relax your butt muscles. . -Ice your hip for 20-30 minutes every 3-4 hours throughout the day -Lovenox is for 30 days to help prevent blood clots -Tylenol is to help with the pain, take this scheduled every 8 hours even if you do not have significant pain -Oxycodone is the narcotic pain medication which to be taken as needed. Meaning only take it if the other pain medications are not sufficient in controlling your pain. -Robaxin is a muscle relaxer and can help with pain/spasms -Mirilax/docusate are to help with constipation which can be caused by the narcotics. Prescriptions: New methocarbamol 500 mg Tablet 500 mg PO TIDP PRN (Reason: Muscle Spasm) Qty: 20 0RF polyethylene glycol 3350 [HealthyLax] 17 gram Powder In Packet 17 gm PO DAILYP PRN (Reason: Constipation) Qty: 14 0RF acetaminophen 500 mg Tablet 1,000 mg PO Q8 Qty: 90 0RF docusate sodium 100 mg Capsule 100 mg PO BID Qty: 60 0RF oxycodone 5 mg Tablet 5 - 10 mg PO Q4HP PRN (Reason: Per Pain Protocol) Qty: 50 0RF enoxaparin 40 mg/0.4 mL Syringe 40 mg SQ DAILY Qty: 31 0RF Continued lisinopril 40 mg Tablet 40 mg PO QDAY atorvastatin 10 mg Tablet 10 mg PO QDAY Rx Instructions: Pt unsure of dosage metformin 1,000 mg Tablet 1,000 mg PO BID insulin glargine 100 unit/mL Cartridge 18 unit SUBCUT QPM sertraline 150 mg Capsule 150 mg PO QDAY trazodone 50 mg Tablet 20 mg PO QPM propranolol PRN PRN (Reason: Anxiety) Rx Instructions: pt unsure of dosage Other Ambulatory Orders: Walker (ONCE) Location: None Selected Ordered By: Henok Castro Follow Up Plan Follow up with: Ryan Kwon PA-C [Physician [employer]] - (10-13 days for post op care) Unknown,Unknown [Primary Care Provider] - Patient Disposition: Home, Self-Care Prognosis: Fair Rehab Potential: Good I certify that the patient requires SNF services: No Overall status at discharge: patient is progressing back to baseline Discharge Orders: Discharge Order (Routine); Ordered 11/04/22 Ordered By: Henok Castro Pending Pending Pending: Resuscitation Status Resuscitate (Full Code) Diet Consistent Carbohydrate Diet Start Sat Nov 01 950 Acetaminophen (Acetaminophen 500 Mg Tablet) 1,000 mg PO Q8 ED; Protocol Last Admin: 11/04/22 05:16 Dose: 1,000 mg Documented By: Admin: 11/04/22 00:29 Dose: 1,000 mg Documented By: Admin: 11/03/22 17:48 Dose: 1,000 mg Documented By: LUIS ARMANDO Admin: 11/03/22 15:36 Dose: Not Given Documented By: LUIS ARMANDO Admin: 11/03/22 05:52 Dose: 1,000 mg Documented By: Admin: 11/02/22 21:57 Dose: 1,000 mg Documented By: Admin: 11/02/22 13:30 Dose: 1,000 mg Documented By: Admin: 11/02/22 05:29 Dose: 1,000 mg Documented By: Admin: 11/01/22 21:57 Dose: 1,000 mg Documented By: Admin: 11/01/22 14:18 Dose: 1,000 mg Documented By: JEANINE Atorvastatin Calcium (Atorvastatin 10 Mg Tablet) 10 mg PO QDAY ED Last Admin: 11/03/22 08:12 Dose: 10 mg Documented By: LUIS ARMANDO Admin: 11/02/22 08:09 Dose: 10 mg Documented By: Admin: 11/01/22 11:21 Dose: 10 mg Documented By: JEANINE Calcium Carbonate/Glycine (Calcium Carbonate 500 Mg Tab.Chew) 500 mg CHEWED Q4HP PRN PRN Reason: Dyspepsia Last Admin: 11/03/22 18:17 Dose: 500 mg Documented By: LUIS ARMANDO Diagnostic Test (Pha) (Accu-Chek 1 Each Strip) 1 each FS ACHS [facility] Last Admin: 11/03/22 21:43 Dose: 1 each Documented By: Admin: 11/03/22 16:46 Dose: 1 each Documented By: LUIS ARMANDO Docusate Sodium (Docusate Sodium 100 Mg Capsule) 100 mg PO BID [facility] Last Admin: 11/03/22 21:13 Dose: 100 mg Documented By: Admin: 11/03/22 08:13 Dose: 100 mg Documented By: LUIS ARMANDO Admin: 11/02/22 20:26 Dose: 100 mg Documented By: Admin: 11/02/22 08:09 Dose: 100 mg Documented By: Admin: 11/01/22 20:12 Dose: 100 mg Documented By: Admin: 11/01/22 11:20 Dose: 100 mg Documented By: Admin: 10/31/22 22:24 Dose: 100 mg Documented By: RAMIREZ Enoxaparin Sodium (Enoxaparin 40 Mg/0.4 Ml Syringe) 40 mg SQ DAILY [facility] Last Admin: 11/03/22 08:12 Dose: 40 mg Documented By: LUIS ARMANDO Admin: 11/02/22 21:56 Dose: 40 mg Documented By: RAMIREZ Hydralazine HCl (Hydralazine 20 Mg/Ml Vial) 0 mg IV Q2HP PRN PRN Reason: Hypertension Last Admin: 10/31/22 22:55 Dose: 10 mg Documented By: RAMIREZ Insulin Glargine (Insulin Glargine, Human 1 Unit/0.01 Ml) 18 unit SQ QPM [facility] Last Admin: 11/03/22 21:43 Dose: 18 units Documented By: Admin: 11/02/22 20:26 Dose: 18 units Documented By: Admin: 11/01/22 20:27 Dose: 18 units Documented By: RAMIREZ Insulin Human Lispro (Insulin Lispro 1 Unit/0.01 Ml Unit) [address] [facility]; Protocol Last Admin: 11/03/22 21:43 Dose: 2 unit Documented By: Admin: 11/03/22 16:49 Dose: 6 unit Documented By: LUIS ARMANDO Lisinopril (Lisinopril 20 Mg Tablet) 40 mg PO QDAY [facility] Last Admin: 11/03/22 08:12 Dose: 40 mg Documented By: LUIS ARMANDO Admin: 11/02/22 08:09 Dose: 40 mg Documented By: Admin: 11/01/22 11:19 Dose: 40 mg Documented By: JEANINE Methocarbamol (Methocarbamol 500 Mg Tablet) 500 mg PO TIDP PRN PRN Reason: Muscle Spasm Last Admin: 11/03/22 22:05 Dose: 500 mg Documented By: Admin: 11/03/22 03:39 Dose: 500 mg Documented By: Admin: 11/02/22 16:06 Dose: 500 mg Documented By: Admin: 11/02/22 08:09 Dose: 500 mg Documented By: Admin: 11/01/22 20:12 Dose: 500 mg Documented By: RAMIREZ Morphine Sulfate (Morphine 2 Mg/Ml Vial) 2 mg IV Q4HP PRN; Protocol PRN Reason: Per Pain Protocol Last Admin: 11/03/22 12:41 Dose: 2 mg Documented By: LUIS ARMANDO Admin: 11/03/22 07:40 Dose: 2 mg Documented By: LUIS ARMANDO Nicotine (Nicotine 14 Mg Patch) 14 mg TOPICAL DAILY@1000 [facility] Last Admin: 11/03/22 08:12 Dose: 14 mg Documented By: LUIS ARMANDO Admin: 11/02/22 11:12 Dose: 14 mg Documented By: JEANINE Oxycodone HCl (Oxycodone Ir 5 Mg Tablet) 0 mg PO Q4HP PRN; Protocol PRN Reason: Per Pain Protocol Last Admin: 11/04/22 03:34 Dose: 10 mg Documented By: Admin: 11/03/22 22:05 Dose: 10 mg Documented By: Admin: 11/03/22 17:00 Dose: 10 mg Documented By: LUIS ARMANDO Admin: 11/03/22 12:41 Dose: 10 mg Documented By: LUIS ARMANDO Admin: 11/03/22 05:52 Dose: 10 mg Documented By: Admin: 11/03/22 00:03 Dose: 10 mg Documented By: Admin: 11/02/22 18:47 Dose: 10 mg Documented By: Admin: 11/02/22 13:30 Dose: 10 mg Documented By: Admin: 11/02/22 09:36 Dose: 10 mg Documented By: Admin: 11/02/22 05:27 Dose: 10 mg Documented By: [facility] Admin: 11/02/22 02:27 Dose: 5 mg Documented By: [facility] Admin: 11/01/22 22:13 Dose: 5 mg Documented By: [facility] Admin: 11/01/22 20:27 Dose: 5 mg Documented By: [facility] Admin: 11/01/22 16:29 Dose: 10 mg Documented By: Admin: 11/01/22 11:21 Dose: 10 mg Documented By: JEANINE Senna (Sennosides 1 Tablet) 2 tab PO HS [facility] Admin: 11/03/22 21:13 Dose: 2 tab Documented By: [facility] Admin: 11/02/22 20:26 Dose: 2 tab Documented By: [facility] Admin: 11/01/22 20:12 Dose: 2 tab Documented By: [facility] Admin: 10/31/22 22:24 Dose: 2 tab Documented By: RAMIREZ Sertraline HCl (Sertraline 100 Mg Tablet) 150 mg PO QDAY [facility] Admin: 11/03/22 08:12 Dose: 150 mg Documented By: LUIS ARMANDO Admin: 11/02/22 08:09 Dose: 150 mg Documented By: Admin: 11/01/22 11:20 Dose: 150 mg Documented By: JEANINE Sodium Chloride (0.9 % Sodium Chloride 10 Ml Syringe) 10 ml IV Q8 [facility] Admin: 11/04/22 04:12 Dose: Not Given Documented By: [facility] Admin: 11/03/22 21:14 Dose: 10 ml Documented By: [facility] Admin: 11/03/22 15:36 Dose: Not Given Documented By: LUIS ARMANDO Admin: 11/03/22 05:53 Dose: 10 ml Documented By: [facility] Admin: 11/02/22 21:56 Dose: 10 ml Documented By: [facility] Admin: 11/02/22 13:32 Dose: 10 ml Documented By: Admin: 11/02/22 04:52 Dose: 10 ml [facility] Admin: 11/01/22 20:27 Dose: Not Given Documented By: Admin: 11/01/22 14:12 Dose: Not Given Documented By: Admin: 11/01/22 04:38 Dose: 10 ml Documented By: Admin: 10/31/22 22:30 Dose: 10 ml Documented By: RAMIREZ Trazodone HCl (Trazodone Hcl 50 Mg Tablet) 25 mg PO QPM ED Last Admin: 11/03/22 21:13 Dose: 25 mg Documented By: Admin: 11/02/22 20:26 Dose: 25 mg Documented By: Admin: 11/01/22 20:12 Dose: 25 mg Documented By: Admin: 10/31/22 22:24 Dose: 25 mg Documented By: RAMIREZ Shift Summary 11/04/22 02:38 Shift Summary by Susie Bobby/Jose and gilma. VSS on RA. IV Rt hand SL. Dressing CDI, reinforced edge with tape. FWW/GB w/ambulation. Patient ambulated a few steps beside. She is struggling tolerating ambulation. Erinn x 2, morphine x 1. Voiding commode. Gemma Costello When prior auth approved. Initialized on 11/04/22 02:38 - END OF NOTE
[2022-11-04] MEDS: INSULIN LISPRO 1 UNIT/0.01 ML UNIT SQ SCH ×2 (07:56→12:02)
--- NOTE | 2022-11-04 08:00 | Orthopedic Progress Note ---
SUBJECTIVE Subjective Patient information: Note initiated : 11/04/22 at 7:54 am Service Date, if different from initiated Date: [] Patient: Zoraida Rodriguez 62 y/o F admitted on 10/31/22 for hip-Left Hip Fracture. Chief Complaint: [No acute issues overnight] Constitutional Vitals: Vital Signs Temp Pulse Resp BP Pulse Ox O2 Del Method O2 Flow Rate 98.5 F 70 16 122/80 96 Room Air 0 11/04/22 03:00 11/04/22 03:00 11/04/22 03:00 11/04/22 03:00 11/04/22 03:00 11/04/22 03:00 11/02/22 16:00 Period Temp Pulse Resp BP Sys/Mcknight Pulse Ox O2 Del Method O2 Flow Rate Last 24 Hr 98.4 F-99.7 F 70-84 12-16 114-143/49-80 90-97 Room Air-Room Air Intake and Output 11/03/22 11/04/22 11/04/22 19:59 03:59 11:59 Intake Total 240 480 Output Total 901 200 701 Balance -661 -200 -221 Weight 275 lb 8 oz 268 lb 12.8 oz Patient Weight 11/05/22 03:59 Weight 268 lb 12.8 oz Intake & Output: Intake & Output 11/03/22 11/04/22 11/04/22 19:59 03:59 11:59 Intake Total 240 480 Output Total 901 200 701 Balance -661 -200 -221 Weight 275 lb 8 oz 268 lb 12.8 oz Intake: Oral 240 480 Output: Void Amount 900 200 700 # of times incontinent of urine 1 1 Other: Meal Dinner Percent of Meal Consumed 75% Feeding Ability Independent Urine Appearance Clear Clear Clear Urine Color Yellow Yellow Yellow Urine Odor Normal Normal Normal Additional findings Additional findings: alert and appropriate dressing changed this AM. incision are dry and clean. No erythema. OBJ DATA Labs 10/31/22 17:30 10/31/22 17:30 Meds: Medications Acetaminophen (Acetaminophen 500 Mg Tablet) 1,000 mg PO Q8 [facility]; Protocol Last Admin: 11/04/22 05:16 Dose: 1,000 mg Atorvastatin Calcium (Atorvastatin 10 Mg Tablet) 10 mg PO QDAY ED Last Admin: 11/03/22 08:12 Dose: 10 mg Bisacodyl (Bisacodyl 10 Mg Supp.Rect) 10 mg MA Q2-3DAYS PRN PRN Reason: Constipation Calcium Carbonate/Glycine (Calcium Carbonate 500 Mg Tab.Chew) 500 mg CHEWED Q4HP PRN PRN Reason: Dyspepsia Last Admin: 11/03/22 18:17 Dose: 500 mg Dextrose (Dextrose 50% 50 Ml Vial) 0 ml IV UD PRN PRN Reason: Per Sliding Scale Dextrose (Dextrose 50% 50 Ml Vial) 0 ml IV UD PRN PRN Reason: Per Sliding Scale Dextrose (Dextrose 50% 50 Ml Vial) 0 ml IV UD PRN PRN Reason: Per Sliding Scale Dextrose (Dextrose 50% 50 Ml Vial) 0 ml IV UD PRN PRN Reason: Per Sliding Scale Diagnostic Test (Pha) (Accu-Chek 1 Each Strip) 1 each FS [facility] Last Admin: 11/04/22 07:27 Dose: 1 each Docusate Sodium (Docusate Sodium 100 Mg Capsule) 100 mg PO BID [facility] Last Admin: 11/03/22 21:13 Dose: 100 mg Enoxaparin Sodium (Enoxaparin 40 Mg/0.4 Ml Syringe) 40 mg SQ DAILY [facility] Last Admin: 11/03/22 08:12 Dose: 40 mg Glucose (Dextrose 31 Gm Oral.Susp) 15 gm PO PRN PRN PRN Reason: Hypoglycemia Glucose (Dextrose 31 Gm Oral.Susp) 15 gm PO PRN PRN PRN Reason: Hypoglycemia Hydralazine HCl (Hydralazine 20 Mg/Ml Vial) 0 mg IV Q2HP PRN PRN Reason: Hypertension Last Admin: 10/31/22 22:55 Dose: 10 mg Insulin Glargine (Insulin Glargine, Human 1 Unit/0.01 Ml) 18 unit SQ QPM [facility] Last Admin: 11/03/22 21:43 Dose: 18 units Insulin Human Lispro (Insulin Lispro 1 Unit/0.01 Ml Unit) 0 unit SQ [facility]; Protocol Last Admin: 11/03/22 21:43 Dose: 2 unit Lisinopril (Lisinopril 20 Mg Tablet) 40 mg PO QDAY [facility] Last Admin: 11/03/22 08:12 Dose: 40 mg Magnesium Hydroxide (Magnesium Hydroxide 30 Ml Oral.Susp) 30 ml PO BIDP PRN PRN Reason: Constipation Methocarbamol (Methocarbamol 500 Mg Tablet) 500 mg PO TIDP PRN PRN Reason: Muscle Spasm Last Admin: 11/03/22 22:05 Dose: 500 mg Morphine Sulfate (Morphine 2 Mg/Ml Vial) 2 mg IV Q4HP PRN; Protocol PRN Reason: Per Pain Protocol Last Admin: 11/03/22 12:41 Dose: 2 mg Nicotine (Nicotine 14 Mg Patch) 14 mg TOPICAL DAILY@1000 [facility] Last Admin: 11/03/22 08:12 Dose: 14 mg Ondansetron HCl (Ondansetron 4 Mg/2 Ml Vial) 4 mg IV Q4HP PRN PRN Reason: Nausea And Vomiting Oxycodone HCl (Oxycodone Ir 5 Mg Tablet) 0 mg PO Q4HP PRN; Protocol PRN Reason: Per Pain Protocol Last Admin: 11/04/22 03:34 Dose: 10 mg Polyethylene Glycol (Polyethylene Glycol 3350 17 Gm Packet) 17 gm PO DAILYP PRN PRN Reason: Constipation Senna (Sennosides 1 Tablet) 2 tab PO HS [facility] Last Admin: 11/03/22 21:13 Dose: 2 tab Sertraline HCl (Sertraline 100 Mg Tablet) 150 mg PO QDAY [facility] Last Admin: 11/03/22 08:12 Dose: 150 mg Sodium Biphosphate/Sodium Phosphate (Fleets Adult Enema) 1 dose MA Q3-4DAYS PRN PRN Reason: Constipation Sodium Chloride (0.9 % Sodium Chloride 10 Ml Syringe) 10 ml IV Q8 [facility] Last Admin: 11/04/22 04:12 Dose: Not Given Throat Lozenges (Benzocaine/Menthol 1 Lozenge) 1 lozenge PO PRN PRN PRN Reason: Sore Throat Trazodone HCl (Trazodone Hcl 50 Mg Tablet) 25 mg PO QPM [facility] Last Admin: 11/03/22 21:13 Dose: 25 mg A/P Assessment and plan (1) Closed fracture of left hip: Assessment and plan: POD 4 s/p left hip ORIF right peritrochanteric hip fracture - toe touch weight bearing ----PT - oral pain meds/diet - prophy: IS, scd's, mobilization, lovenox - Dispo: Pending authorization for SNF. She unable to safetly independently transfer Ok to d/c when approved. Status: Acute Qualifiers: Encounter type: initial encounter Qualified Code(s): S72.002A - Fracture of unspecified part of neck of left femur, initial encounter for closed fracture Time Spent With Patient Time: Total time spent is greater than 50% in coordination of care (as documented) at patient's floor/unit and/or counseling patient:
[2022-11-04] MEDS: ATORVASTATIN 10 MG TABLET PO SCH (09:43)
[2022-11-04] MEDS: SERTRALINE 100 MG TABLET PO SCH (09:43)
[2022-11-04] MEDS: ENOXAPARIN 40 MG/0.4 ML SYRINGE SQ SCH (09:43)
[2022-11-04] MEDS: DOCUSATE SODIUM 100 MG CAPSULE PO SCH (09:44)
[2022-11-04] MEDS: LISINOPRIL 20 MG TABLET PO SCH (09:44)
[2022-11-04] MEDS: NICOTINE 14 MG PATCH TOPICAL SCH (09:44)
[2022-11-04] MEDS: METHOCARBAMOL 500 MG TABLET PO PRN (11:35)
== END 2022-11-04 11:45 | disposition home or self-care (01) | DRG 482 ==
LOC: ED 15:55 → MEDSUR 21:26
PROVIDERS: ADMIT Orthopaedic Surgery; ATTEND Orthopaedic Surgery